=== PATIENT | female | born 1980 | race Caucasian/White ===

== ENCOUNTER 2018-09-09 10:54 | Emergency (ER) | payer BC ==
[2018-09-09 11:23] VITALS: PULSE 84; RESP 18; TEMP 98.2
[2018-09-09] MEDS ORDERED: SODIUM CHLORIDE 0.9% 1,000 ML IV STA (12:38)
[2018-09-09 12:43] LABS: Glucose,Whole Blood 90 mg/dL (75-99)
--- NOTE | 2018-09-09 13:00 | ED ---
Dizziness HPI - General Chief Complaint: Dizziness Stated Complaint: Dizzy/tingling/dry mouth Time Seen by Provider: 09/09/18 12:32 Source: patient Mode of arrival: wheelchair Limitations: no limitations - History of Present Illness Initial Comments: 38-year-old female patient presents to the emergency department today for evaluation of dizziness and near syncope. Patient states that she had dizziness starting this morning when she got to work. States that has persisted throughout the day and she is now having blurred vision. States that she has dizzy both at rest and with movement. States just prior to arrival she nearly passed out at work. Patient states that she has been having racing heart home morning as well. States it feels like is pounding out of her chest. States she is nauseated but has not vomited. She denies any chest pain, abdominal pain, fever, or chills. States that she does have a headache and does have history of migraines. States she is having some tingling and numbness to her hands and feet bilaterally. States that she is very thirsty and feels dry. Patient denies any recent rash, shortness breath, diarrhea, constipation, back pain, hematuria, dysuria, urinary urgency, urinary frequency , or any other complaints. - Related Data Home Medications Medication Instructions Recorded Confirmed Acetaminophen [Tylenol Extra 1,000 mg PO BID PRN 08/17/17 09/09/18 Strength] Ibuprofen [Motrin] 400 mg PO Q6HR PRN 08/17/17 09/09/18 diphenhydrAMINE [Benadryl] 50 mg PO HS 09/09/18 09/09/18 Previous Rx's Medication Instructions Recorded Meclizine HCl 25 mg PO BID #14 tablet 09/09/18 Allergies Allergy/AdvReac Type Severity Reaction Status Date / Time No Known Allergies Allergy Verified 09/09/18 12:43 Review of Systems ROS Statement: Those systems with pertinent positive or pertinent negative responses have been documented in the HPI. ROS Other: All systems not noted in ROS Statement are negative. Past Medical History Past Medical History: No Reported History History of Any Multi-Drug Resistant Organisms: None Reported Past Surgical History: Appendectomy, Back Surgery, Section, Cholecystectomy, Hysterectomy Additional Past Surgical History / Comment(s): LEFT FINGER SURGERY, CARPAL TUNNEL SEAN Past Psychological History: No Psychological Hx Reported Smoking Status: Former smoker Past Alcohol Use History: Occasional Past Drug Use History: None Reported General Exam Limitations: no limitations General appearance: alert, in no apparent distress, other (Physical well- developed, well-nourished adult female patient in no acute distress. Vital signs upon presentation are temperature 98.2F, pulse 84, respirations 18, blood pressure 124/71, pulse ox 100% on room air.) Eye exam: Present: normal appearance, PERRL, EOMI. Absent: scleral icterus, conjunctival injection, periorbital swelling ENT exam: Present: normal exam, normal oropharynx, mucous membranes moist Respiratory exam: Present: normal lung sounds bilaterally. Absent: respiratory distress, wheezes, rales, rhonchi, stridor Cardiovascular Exam: Present: regular rate, normal rhythm, normal heart sounds. Absent: systolic murmur, diastolic murmur, rubs, gallop, clicks GI/Abdominal exam: Present: soft, normal bowel sounds. Absent: distended, tenderness, guarding, rebound, rigid Neurological exam: Present: alert, oriented X3, CN II-XII intact, other ( Strength in all 4 extremities 5/5.) Psychiatric exam: Present: normal affect, normal mood Skin exam: Present: warm, dry, intact, normal color. Absent: rash Course Vital Signs 09/09/18 09/09/18 11:20 15:01 Temperature 98.2 F Pulse Rate 84 84 Respiratory 18 18 Rate Blood Pressure 124/71 110/62 O2 Sat by Pulse 100 100 Oximetry EKG Findings - EKG Comments: EKG Findings:: EKG obtained at 1252 shows normal sinus rhythm with a ventricular rate of 82, IN interval 150, QRS duration 86, QT 402, QTc 469. No evidence of ST elevation or depression. Medical Decision Making - Medical Decision Making 38-year-old female patient presents to the emergency department today for complaints of dizziness, dry mouth, tingling to hands and feet. Physical examination is unremarkable. Patient is neurologically intact with no focal deficits. Patient is able to ambulate without difficulty. Vital signs remained stable throughout visit. EKG shows normal sinus rhythm. Labs reviewed and are unremarkable. CT of the brain showed no acute intracranial abdomen mild 2. Did discuss findings and results with the patient. Did discuss that her dizziness could be related to migraine headache versus vertigo. She is instructed to take medications as directed and to follow-up with her primary care physician for recheck as soon as possible. She is also instructed to discuss possible referral to cardiology. Return parameters were discussed in detail. She verbalizes understanding and agrees with this plan. - Lab Data Result diagrams: 09/09/18 12:42 09/09/18 12:42 Lab Results 09/09/18 09/09/18 09/09/18 Range/Units 12:39 12:42 12:42 WBC 8.8 (3.8-10.6) k/uL RBC 4.70 (3.80-5.40) m/uL Hgb 14.2 (11.4-16.0) gm/dL Hct 39.9 (34.0-46.0) % MCV 84.8 (80.0-100.0) fL MCH 30.1 (25.0-35.0) pg MCHC 35.5 (31.0-37.0) g/dL RDW 13.1 (11.5-15.5) % Plt Count 206 (150-450) k/uL Neutrophils % 70 % Lymphocytes % 23 % Monocytes % 5 % Eosinophils % 1 % Basophils % 1 % Neutrophils # 6.1 (1.3-7.7) k/uL Lymphocytes # 2.0 (1.0-4.8) k/uL Monocytes # 0.4 (0-1.0) k/uL Eosinophils # 0.1 (0-0.7) k/uL Basophils # 0.1 (0-0.2) k/uL PT (9.0-12.0) sec INR (<1.2) APTT (22.0-30.0) sec Sodium 141 (137-145) mmol/L Potassium 4.0 (3.5-5.1) mmol/L Chloride 107 (98-107) mmol/L Carbon Dioxide 23 (22-30) mmol/L Anion Gap 11 mmol/L BUN 14 (7-17) mg/dL Creatinine 0.60 (0.52-1.04) mg/dL Est GFR (CKD-EPI)AfAm >90 (>60 ml/min/1.73 sqM) Est GFR (CKD-EPI)NonAf >90 (>60 ml/min/1.73 sqM) Glucose 94 (74-99) mg/dL POC Glucose (mg/dL) 90 (75-99) mg/dL POC Glu Corporate Director ID Erik Ramirez Calcium 9.5 (8.4-10.2) mg/dL Total Bilirubin 0.6 (0.2-1.3) mg/dL AST 20 (14-36) U/L ALT 32 (9-52) U/L Alkaline Phosphatase 55 (38-126) U/L Troponin I (0.000-0.034) ng/mL Total Protein 7.9 (6.3-8.2) g/dL Albumin 4.6 (3.5-5.0) g/dL Urine Color Urine Appearance (Clear) Urine pH (5.0-8.0) Ur Specific [place] (1.001-1.035) Urine Protein (Negative) Urine Glucose (UA) (Negative) Urine Ketones (Negative) Urine Blood (Negative) Urine Nitrite (Negative) Urine Bilirubin (Negative) Urine Urobilinogen (<2.0) mg/dL Ur Leukocyte Esterase (Negative) Urine WBC (0-5) /hpf Ur Squamous Epith Cells (0-4) /hpf Amorphous Sediment (None) /hpf Urine Bacteria (None) /hpf Hyaline Casts (0-2) /lpf Urine Mucus (None) /hpf Urine HCG, Qual (Not Detectd) 09/09/18 09/09/18 09/09/18 Range/Units 12:42 12:42 12:42 WBC (3.8-10.6) k/uL RBC (3.80-5.40) m/uL Hgb (11.4-16.0) gm/dL Hct (34.0-46.0) % MCV (80.0-100.0) fL MCH (25.0-35.0) pg MCHC (31.0-37.0) g/dL RDW (11.5-15.5) % Plt Count (150-450) k/uL Neutrophils % % Lymphocytes % % Monocytes % % Eosinophils % % Basophils % % Neutrophils # (1.3-7.7) k/uL Lymphocytes # (1.0-4.8) k/uL Monocytes # (0-1.0) k/uL Eosinophils # (0-0.7) k/uL Basophils # (0-0.2) k/uL PT 10.0 (9.0-12.0) sec INR 0.9 (<1.2) APTT 24.5 (22.0-30.0) sec Sodium (137-145) mmol/L Potassium (3.5-5.1) mmol/L Chloride (98-107) mmol/L Carbon Dioxide (22-30) mmol/L Anion Gap mmol/L BUN (7-17) mg/dL Creatinine (0.52-1.04) mg/dL Est GFR (CKD-EPI)AfAm (>60 ml/min/1.73 sqM) Est GFR (CKD-EPI)NonAf (>60 ml/min/1.73 sqM) Glucose (74-99) mg/dL POC Glucose (mg/dL) (75-99) mg/dL POC Glu Corporate Director ID Calcium (8.4-10.2) mg/dL Total Bilirubin (0.2-1.3) mg/dL AST (14-36) U/L ALT (9-52) U/L Alkaline Phosphatase (38-126) U/L Troponin I <0.012 (0.000-0.034) ng/mL Total Protein (6.3-8.2) g/dL Albumin (3.5-5.0) g/dL Urine Color Light Yellow Urine Appearance Cloudy H (Clear) Urine pH 6.0 (5.0-8.0) Ur Specific [place] 1.006 (1.001-1.035) Urine Protein Negative (Negative) Urine Glucose (UA) Negative (Negative) Urine Ketones Negative (Negative) Urine Blood Negative (Negative) Urine Nitrite Negative (Negative) Urine Bilirubin Negative (Negative) Urine Urobilinogen <2.0 (<2.0) mg/dL Ur Leukocyte Esterase Negative (Negative) Urine WBC 1 (0-5) /hpf Ur Squamous Epith Cells 30 H (0-4) /hpf Amorphous Sediment Occasional H (None) /hpf Urine Bacteria Rare H (None) /hpf Hyaline Casts 2 (0-2) /lpf Urine Mucus Rare H (None) /hpf Urine HCG, Qual (Not Detectd) 09/09/18 Range/Units 12:42 WBC (3.8-10.6) k/uL RBC (3.80-5.40) m/uL Hgb (11.4-16.0) gm/dL Hct (34.0-46.0) % MCV (80.0-100.0) fL MCH (25.0-35.0) pg MCHC (31.0-37.0) g/dL RDW (11.5-15.5) % Plt Count (150-450) k/uL Neutrophils % % Lymphocytes % % Monocytes % % Eosinophils % % Basophils % % Neutrophils # (1.3-7.7) k/uL Lymphocytes # (1.0-4.8) k/uL Monocytes # (0-1.0) k/uL Eosinophils # (0-0.7) k/uL Basophils # (0-0.2) k/uL PT (9.0-12.0) sec INR (<1.2) APTT (22.0-30.0) sec Sodium (137-145) mmol/L Potassium (3.5-5.1) mmol/L Chloride (98-107) mmol/L Carbon Dioxide (22-30) mmol/L Anion Gap mmol/L BUN (7-17) mg/dL Creatinine (0.52-1.04) mg/dL Est GFR (CKD-EPI)AfAm (>60 ml/min/1.73 sqM) Est GFR (CKD-EPI)NonAf (>60 ml/min/1.73 sqM) Glucose (74-99) mg/dL POC Glucose (mg/dL) (75-99) mg/dL POC Glu Corporate Director ID Calcium (8.4-10.2) mg/dL Total Bilirubin (0.2-1.3) mg/dL AST (14-36) U/L ALT (9-52) U/L Alkaline Phosphatase (38-126) U/L Troponin I (0.000-0.034) ng/mL Total Protein (6.3-8.2) g/dL Albumin (3.5-5.0) g/dL Urine Color Urine Appearance (Clear) Urine pH (5.0-8.0) Ur Specific [place] (1.001-1.035) Urine Protein (Negative) Urine Glucose (UA) (Negative) Urine Ketones (Negative) Urine Blood (Negative) Urine Nitrite (Negative) Urine Bilirubin (Negative) Urine Urobilinogen (<2.0) mg/dL Ur Leukocyte Esterase (Negative) Urine WBC (0-5) /hpf Ur Squamous Epith Cells (0-4) /hpf Amorphous Sediment (None) /hpf Urine Bacteria (None) /hpf Hyaline Casts (0-2) /lpf Urine Mucus (None) /hpf Urine HCG, Qual Not Detected (Not Detectd) - Radiology Data Radiology results: report reviewed, image reviewed CT brain without contrast was performed. Report is reviewed in its entirety. Impression by Dr. Hall shows no acute intracranial process is seen at this time. Disposition Clinical Impression: Dizziness, Migraine headache Disposition: HOME SELF-CARE Condition: Good Instructions: Migraine Headache (ED), Dizziness (ED) Additional Instructions: Take medication as directed. Follow up with your primary care physician for recheck as soon as possible. Discuss possible referral to cardiology. Return to the emergency department for any new, worsening, or concerning symptoms. Prescriptions: Meclizine HCl 25 mg PO BID #14 tablet Is patient prescribed a controlled substance at d/c from ED?: No Referrals: Mingo Allison DO [Primary Care Provider] - 1-2 days Time of Disposition: 14:14
[2018-09-09] MEDS ORDERED: ONDANSETRON 4 MG/2 ML VIAL IVP STA (13:06)
[2018-09-09 13:15] LABS: ALT 32 U/L (9-52); AST 20 U/L (14-36); Albumin 4.6 g/dL (3.5-5.0); Alkaline Phosphatase 55 U/L (38-126); Anion Gap 11 mmol/L; Blood Urea Nitrogen 14 mg/dL (7-17); Calcium 9.5 mg/dL (8.4-10.2); Carbon Dioxide 23 mmol/L (22-30); Chloride 107 mmol/L (98-107); Glucose 94 mg/dL (74-99); Sodium 141 mmol/L (137-145); Total Bilirubin 0.6 mg/dL (0.2-1.3); Total Protein 7.9 g/dL (6.3-8.2)
[2018-09-09 13:19] LABS: Amorphous Sediment,Urine Occasional /hpf; Appearance,Urine Cloudy (Clear); Bacteria,Urine Rare /hpf; Bilirubin,Urine Negative (Negative); Blood,Urine Negative (Negative); Color,Urine Light Yellow; Glucose,Urine (UA) Negative (Negative); Hyaline Casts,Urine 2 /lpf (0-2); Ketones,Urine Negative (Negative); Leukocyte Esterase,Urine Negative (Negative); Mucus,Urine Rare /hpf; Nitrite,Urine Negative (Negative); Protein,Urine Negative (Negative); Specific Gravity,Urine 1.006 (1.001-1.035); Squamous Epithelial Cell,Urine 30 /hpf (0-4); Urobilinogen,Urine <2.0 mg/dL (<2.0); WBC,Urine 1 /hpf (0-5)
[2018-09-09 13:21] LABS: INR 0.9 (<1.2); Partial Thromboplastin Time 24.5 sec (22.0-30.0)
[2018-09-09 13:33] LABS: Basophils # (A) 0.1 k/uL (0-0.2); Basophils % (A) 1 %; Eosinophils # (A) 0.1 k/uL (0-0.7); Eosinophils % (A) 1 %; HCT 39.9 % (34.0-46.0); HGB 14.2 gm/dL (11.4-16.0); Lymphocytes % (A) 23 %; MCH 30.1 pg (25.0-35.0); MCHC 35.5 g/dL (31.0-37.0); MCV 84.8 fL (80.0-100.0); Mean Platelet Volume 7.5; Monocytes # (A) 0.4 k/uL (0-1.0); Monocytes % (A) 5 %; Neutrophils # (A) 6.1 k/uL (1.3-7.7); Neutrophils % (A) 70 %; Platelet Count 206 k/uL (150-450); RDW 13.1 % (11.5-15.5); WBC 8.8 k/uL (3.8-10.6)
--- NOTE | 2018-09-09 13:55 | CT ---
EXAMINATION TYPE: CT brain wo con DATE OF EXAM: 09/09/2018 COMPARISON: 10/03/11 HISTORY: CAMPBELL, blurred vision, dizziness CT DLP: 1036.[address] of the brain was performed. The ventricles, basal cisterns and sulci overlying the cerebral convexities demonstrate a normal appe arance. There is no evidence for intracranial hemorrhage or sulcal effacement. No mass effects are seen. Osseous calvarium is intact. If symptoms persist consider MRI as clinically warranted. IMPRESSION: 1. No acute intracranial process is seen at this time.
[2018-09-09] MEDS ORDERED: KETOROLAC 30 MG/ML 1 ML VIAL IVP STA (14:12)
[2018-09-09] MEDS ORDERED: MORPHINE SULFATE 2 MG/ML SYRINGE IVP STA (14:12)
[2018-09-09] MEDS ORDERED: MECLIZINE 12.5 MG TAB PO STA (14:12)
[2018-09-09 15:02] VITALS: BP 110/62
== END 2018-09-09 14:50 | disposition home or self-care (01) ==
LOC: EC 10:54
DX: G43.909 Migraine, unspecified, not intractable, without status migrainosus (principal); R68.2 Dry mouth, unspecified; R20.2 Paresthesia of skin; R63.1 Polydipsia; Z87.891 Personal history of nicotine dependence; Z79.899 Other long term (current) drug therapy; Z98.890 Other specified postprocedural states
CPT/HCPCS: 36415; 93005; 80053; 84484; 85025; 85610; 85730; 81001; 81025; 70450; 99284; 96374; 96375 ×2; 96361; J2405; J1885; J2270

== ENCOUNTER → 2018-11-15 | Outpatient (CLI) | payer BC ==
[2018-11-15 08:40] LABS: HGB 13.8 gm/dL (11.4-16.0); MCH 27.8 pg (25.0-35.0); MCHC 32.1 g/dL (31.0-37.0); MCV 86.5 fL (80.0-100.0); Mean Platelet Volume 7.4; Platelet Count 221 k/uL (150-450); RBC 4.97 m/uL (3.80-5.40); WBC 6.9 k/uL (3.8-10.6)
--- NOTE | 2018-11-15 08:44 | XR ---
EXAMINATION TYPE: XR chest 2V DATE OF EXAM: 11/15/2018 COMPARISON: NONE TECHNIQUE: PA and lateral views submitted. HISTORY: Presurgical FINDINGS: The lungs are clear and there is no pneumothorax, pleural effusion, or focal pneumonia. Postsurgica l change overlying the cervical spine. Interstitium mildly coarsened. Surgical clips right abdomen. IMPRESSION: 1. Mildly coarsened interstitium could be related to poor inspiration. Correlate for bronchitis or pn eumonitis.
[2018-11-15 08:48] LABS: Partial Thromboplastin Time 24.7 sec (22.0-30.0); Prothrombin Time 10.3 sec (9.0-12.0)
[2018-11-15 08:50] LABS: Appearance,Urine Cloudy (Clear); Bacteria,Urine Few /hpf; Bilirubin,Urine Negative (Negative); Blood,Urine Negative (Negative); Color,Urine Yellow; Glucose,Urine (UA) Negative (Negative); Ketones,Urine Negative (Negative); Leukocyte Esterase,Urine Negative (Negative); Mucus,Urine Moderate /hpf; Nitrite,Urine Negative (Negative); PH, Urine 5.5 (5.0-8.0); Protein,Urine Trace (Negative); RBC,Urine 1 /hpf (0-5); Specific Gravity,Urine 1.019 (1.001-1.035); Squamous Epithelial Cell,Urine 19 /hpf (0-4); Urobilinogen,Urine <2.0 mg/dL (<2.0)
[2018-11-15 08:52] LABS: ALT 26 U/L (9-52); AST 16 U/L (14-36); Albumin 4.2 g/dL (3.5-5.0); Alkaline Phosphatase 56 U/L (38-126); Anion Gap 9 mmol/L; Blood Urea Nitrogen 16 mg/dL (7-17); Calcium 8.8 mg/dL (8.4-10.2); Carbon Dioxide 24 mmol/L (22-30); Chloride 107 mmol/L (98-107); Glucose 93 mg/dL (74-99); Potassium 4.3 mmol/L (3.5-5.1); Sodium 140 mmol/L (137-145); Total Bilirubin 0.5 mg/dL (0.2-1.3)
== END | disposition home or self-care (01) ==
LOC: LABPAT 07:39
PROVIDERS: ATTEND Neurological Surgery
DX: Z01.818 Encounter for other preprocedural examination (principal); M48.02 Spinal stenosis, cervical region
CPT/HCPCS: 36415; 71046; 80053; 81001; 85027; 85610; 85730; 87070

== ENCOUNTER → 2018-12-26 | Outpatient (CLI) | payer BC ==
--- NOTE | 2018-12-27 11:17 | XR ---
EXAMINATION TYPE: XR cervical spine limited DATE OF EXAM: 12/26/2018 COMPARISON: 03/11/2010 HISTORY: Postop TECHNIQUE: Four views are submitted. FINDINGS: There is a kyphosis of the cervical spine with extensive postsurgical changes. Surgical clips are see n anteriorly within the prevertebral soft tissue structures. Fixation plate is slightly displaced rel ative the anterior margin the vertebral column should be correlated clinically. Odontoid view is limited but grossly appears intact on the lateral view. Lung apices clear. Appears t o be a curvature of the visualized thoracic spine suggestive of scoliosis. IMPRESSION: 1. Postsurgical changes with a residual kyphosis centered at the approximate level of C5.
== END | disposition home or self-care (01) ==
LOC: RADXRMAIN 10:09
PROVIDERS: ATTEND Neurological Surgery
DX: M40.292 Other kyphosis, cervical region (principal); Z98.1 Arthrodesis status; Z98.890 Other specified postprocedural states
CPT/HCPCS: 72040

== ENCOUNTER → 2020-09-25 | Outpatient (CLI) | payer BC ==
--- NOTE | 2020-09-25 13:07 | US ---
EXAMINATION TYPE: US pelvis complete transvag DATE OF EXAM: 09/25/2020 COMPARISON: NONE CLINICAL HISTORY: 40-year-old female R10.32 left lower quadrant pain. Pelvic pain, partial hysterecto my 13 years ago TECHNIQUE: Transabdominal sonographic images of the pelvis were acquired. Transvaginal sonographic i mages were medically necessary to better assess the following anatomy: left ovary Date of LMP: unknown FINDINGS: EXAM MEASUREMENTS: Uterus: Surgically absent Right Ovary: 3.4 x 1.5 x 2.2 cm Left Ovary: unable to visualize 1. Uterus: Surgically absent, vaginal cuff measures 1.2 cm; no abnormal thickening seen. 2. Right Ovary: appears wnl 3. Left Ovary: Obscured by overlying bowel gas 4. Bilateral Adnexa: appears wnl IMPRESSION: 1. Status post hysterectomy. 2. Left ovary cannot be visualized due to bowel gas. 3. No evident adnexal abnormality or cul-de-sac free fluid.
== END | disposition home or self-care (01) ==
LOC: RADUSWWP 12:28
PROVIDERS: ATTEND Family Medicine
DX: Z90.710 Acquired absence of both cervix and uterus (principal)
CPT/HCPCS: 76830; 76856

== ENCOUNTER → 2020-10-13 | Outpatient (CLI) | payer BC ==
--- NOTE | 2020-10-13 15:41 | CT ---
EXAMINATION TYPE: CT abdomen pelvis w con DATE OF EXAM: 10/13/2020 COMPARISON: None INDICATION: Pelvic pain and bleeding DLP: 1006.1 mGycm, Automated exposure control for dose reduction was used. CONTRAST: 100 mL of Isovue 300. Study performed with Oral Contrast TECHNIQUE: Axial images were obtained from above the diaphragm to the pubic rami in the axial plane a t 5 mm thick sections. Reconstructed images are reviewed on the computer in the coronal plane. FINDINGS: Limited CT sections are obtained the lung bases. The lung bases are clear. CT ABDOMEN: Liver: Normal Spleen: Normal Pancreas: Normal Adrenal glands: The adrenal glands are normal. Gallbladder: Normal Kidneys: No masses are evident. No hydronephrosis is present. No cysts are present. Delayed images were obtained through the kidneys, which remain unremarkable. Aorta: Normal Inferior vena cava: Normal. CT PELVIS: Loops of bowel within the abdomen and pelvis are normal. Fecal debris is within the colon. There a re loops of bowel which are incompletely distended or lack oral contrast limiting their evaluation. Appendix: Not identified Urinary bladder: Normal. Genitourinary structures: Uterus and ovaries are not identified. Osseous structures: No suspicious lytic or sclerotic lesions. Sacroiliac joint degenerative changes p resent. IMPRESSIONS: 1. No suspicious changes to account for patient's symptoms.
== END | disposition home or self-care (01) ==
LOC: RADCTMAIN 12:44
PROVIDERS: ATTEND Family Medicine
DX: R10.32 Left lower quadrant pain (principal); R10.31 Right lower quadrant pain
CPT/HCPCS: 74177; Q9967

== ENCOUNTER → 2020-11-06 | Outpatient (CLI) | payer BC ==
--- NOTE | 2020-11-06 13:55 | MM ---
Reason for exam: screening (asymptomatic). Baseline mammogram. History: Took hormonal contraceptives for 10 years beginning at age 15. Physical Findings: Nurse did not find any significant physical abnormalities on exam. MG Screening Mammo w CAD Bilateral CC and MLO view(s) were taken. The breast tissue is heterogeneously dense. This may lower the sensitivity of mammography. There is no discrete abnormality. These results were verbally communicated with the patient and result sheet given to the patient on 11/06/20. ASSESSMENT: Benign, BI-RAD 2 RECOMMENDATION: Routine screening mammogram of both breasts in 1 year.
== END | disposition home or self-care (01) ==
LOC: RADMAMWWP 12:33
PROVIDERS: ATTEND Family Medicine
DX: Z12.31 Encounter for screening mammogram for malignant neoplasm of breast (principal)
CPT/HCPCS: 77067

== ENCOUNTER 2020-12-21 13:41 | Emergency (ER) | payer BC ==
--- NOTE | 2020-12-21 14:21 | XR ---
EXAMINATION TYPE: XR chest 2V DATE OF EXAM: 12/21/2020 COMPARISON: 11/15/2018 TECHNIQUE: PA and lateral views submitted. HISTORY: Shortness of breath FINDINGS: The lungs are clear and there is no pneumothorax, pleural effusion, or focal pneumonia. Diffuse inte rstitial pattern. Postsurgical change involving the cervical spine and upper quadrant of the abdomen. IMPRESSION: 1. Correlate for bronchitis or mild central interstitial pneumonitis.
[2020-12-21] MEDS ORDERED: DEXAMETHASONE SOD PHOSPHATE 10 MG/ML 1 ML VIAL IV STA (15:16)
[2020-12-21] MEDS ORDERED: KETOROLAC 15 MG/ML 1 ML VIAL IVP STA (15:17)
--- NOTE | 2020-12-21 16:17 | ED ---
SOB HPI - General Chief Complaint: Shortness of Breath Stated Complaint: COVID+,SOB Time Seen by Provider: 12/21/20 15:07 Source: patient Mode of arrival: ambulatory Limitations: no limitations - History of Present Illness Initial Comments: Is 40-year-old female presents with a complaint of some shortness breath and cough. She also has a midsternal chest pain which is described as a sharp pain that is nonradiating. She was diagnosed with COVID approximately 5 days ago and has had symptoms for approximately 6 days. She denies any loss of taste or loss of smell. She denies any nausea vomiting or constipation but has had mild diarrhea. She complains of significant fatigue. She relates that multiple family members have similar. She denies any leg pain or swelling. There is no history of DVT or PE but a family history of pulmonary embolism by mother. Her primary care as prescribed her albuterol and she takes 2 puffs every 4-6 hours without any significant relief. No other complaints or modifying factors. She denies any possibility of . - Related Data Home Medications Medication Instructions Recorded Confirmed Acetaminophen [Tylenol Extra 1,000 mg PO BID PRN 08/17/17 09/09/18 Strength] Ibuprofen [Motrin] 400 mg PO Q6HR PRN 08/17/17 09/09/18 diphenhydrAMINE [Benadryl] 50 mg PO HS 09/09/18 09/09/18 Previous Rx's Medication Instructions Recorded Meclizine HCl 25 mg PO BID #14 tablet 09/09/18 Albuterol Inhaler [Ventolin Hfa 4 puff INHALATION Q4H PRN #1 puff 12/21/20 Inhaler] Dexamethasone [Decadron] 6 mg PO DAILY #7 tablet 12/21/20 Allergies Allergy/AdvReac Type Severity Reaction Status Date / Time No Known Allergies Allergy Verified 12/21/20 14:02 Review of Systems ROS Statement: Those systems with pertinent positive or pertinent negative responses have been documented in the HPI. ROS Other: All systems not noted in ROS Statement are negative. Past Medical History Past Medical History: No Reported History History of Any Multi-Drug Resistant Organisms: None Reported Past Surgical History: Appendectomy, Back Surgery, Section, Cholecystectomy, Hysterectomy Additional Past Surgical History / Comment(s): LEFT FINGER SURGERY, CARPAL TUNNEL SEAN Past Psychological History: Anxiety, Bipolar, Depression Smoking Status: Former smoker Past Alcohol Use History: Occasional Past Drug Use History: None Reported General Exam - General Exam Comments Initial Comments: GENERAL: The patient is well nourished and well hydrated. VITAL SIGNS: Heart rate, blood pressure, respiratory rate reviewed as recorded in nurse's notes. EYES: Pupils are round and reactive. Extraocular movements are intact. No conjunctival / lid redness or swelling. ENT: No external evidence of injury, swelling, or ecchymosis. Airway is patent. Throat is clear. NECK: Nontender. No swelling or evidence of injury. No subcutaneous emphysema. Trachea is midline. No thyroid mass. HEART: Regular rate and rhythm. Good peripheral pulses. LUNGS/CHEST: Breath sounds clear and equal bilaterally. No rales, rhonchi, or wheezes. No ecchymosis, subcutaneous emphysema, or tenderness. ABDOMEN: Abdomen soft without tenderness. No palpable masses or organomegaly. No peritoneal signs. No abdominal wall swelling or ecchymosis. EXTREMITIES: No extremity tenderness. Normal muscle tone and function. No thoracolumbar tenderness. NEUROLOGIC: Sensation is grossly intact. Cranial nerve exam reveals face is symmetrical, tongue is midline, speech is clear. SKIN: No abrasions or ecchymosis is noted. No induration or masses noted. PSYCHIATRIC: Alert and oriented. Appropriate behavior and judgment. Limitations: no limitations Course Vital Signs 12/21/20 12/21/20 12/21/20 13:58 15:15 18:00 Temperature 98.0 F 97.8 F Pulse Rate 77 84 Respiratory 17 18 16 Rate Blood Pressure 105/71 102/66 O2 Sat by Pulse 97 96 Oximetry Medical Decision Making - Medical Decision Making The patient was seen and examined. All diagnostics are reviewed. The EKG shows a normal sinus rhythm at a rate of 74. There is no acute ST-T wave changes identified. The MS intervals 156, QRS duration is 88, and the QTC intervals 450. She does receive Decadron 6 mg intravenously as well as 15 mg of Toradol intravenously. The chest x-ray was done and does show infiltrates consistent with viral pneumonia. The laboratory was essentially within normal limits except for a slight elevation of the d-dimer. Therefore, a CT angiogram of the chest was completed and this does not show any evidence of pulmonary embolism but does show evidence of bilateral covert pneumonia, mild. It is felt as though the patient is stable for discharge. Her oxygenation status is been stable. Close follow-up recommended. Return parameters are discussed in detail. She will be prescribed steroids and a refill of her inhaler. - Lab Data Result diagrams: 12/21/20 15:36 12/21/20 15:36 Lab Results 12/21/20 12/21/20 12/21/20 Range/Units 14:07 15:36 15:36 WBC 9.8 (3.8-10.6) k/uL RBC 4.89 (3.80-5.40) m/uL Hgb 14.5 (11.4-16.0) gm/dL Hct 39.7 (34.0-46.0) % MCV 81.2 (80.0-100.0) fL MCH 29.6 (25.0-35.0) pg MCHC 36.5 (31.0-37.0) g/dL RDW 13.4 (11.5-15.5) % Plt Count 263 (150-450) k/uL MPV 8.3 Neutrophils % 63 % Lymphocytes % 25 % Monocytes % 7 % Eosinophils % 2 % Basophils % 1 % Neutrophils # 6.2 (1.3-7.7) k/uL Lymphocytes # 2.5 (1.0-4.8) k/uL Monocytes # 0.7 (0-1.0) k/uL Eosinophils # 0.2 (0-0.7) k/uL Basophils # 0.1 (0-0.2) k/uL PT 10.3 (9.0-12.0) sec INR 1.0 (<1.2) APTT 24.7 (22.0-30.0) sec D-Dimer 0.67 H (<0.60) mg/L FEU Sodium (137-145) mmol/L Potassium (3.5-5.1) mmol/L Chloride (98-107) mmol/L Carbon Dioxide (22-30) mmol/L Anion Gap mmol/L BUN (7-17) mg/dL Creatinine (0.52-1.04) mg/dL Est GFR (CKD-EPI)AfAm (>60 ml/min/1.73 sqM) Est GFR (CKD-EPI)NonAf (>60 ml/min/1.73 sqM) Glucose (74-99) mg/dL Calcium (8.4-10.2) mg/dL Total Bilirubin (0.2-1.3) mg/dL AST (14-36) U/L ALT (4-34) U/L Alkaline Phosphatase (38-126) U/L Troponin I (0.000-0.034) ng/mL Total Protein (6.3-8.2) g/dL Albumin (3.5-5.0) g/dL Coronavirus (PCR) Detected A (Not Detectd) 12/21/20 12/21/20 Range/Units 15:36 15:36 WBC (3.8-10.6) k/uL RBC (3.80-5.40) m/uL Hgb (11.4-16.0) gm/dL Hct (34.0-46.0) % MCV (80.0-100.0) fL MCH (25.0-35.0) pg MCHC (31.0-37.0) g/dL RDW (11.5-15.5) % Plt Count (150-450) k/uL MPV Neutrophils % % Lymphocytes % % Monocytes % % Eosinophils % % Basophils % % Neutrophils # (1.3-7.7) k/uL Lymphocytes # (1.0-4.8) k/uL Monocytes # (0-1.0) k/uL Eosinophils # (0-0.7) k/uL Basophils # (0-0.2) k/uL PT (9.0-12.0) sec INR (<1.2) APTT (22.0-30.0) sec D-Dimer (<0.60) mg/L FEU Sodium 138 (137-145) mmol/L Potassium 4.2 (3.5-5.1) mmol/L Chloride 105 (98-107) mmol/L Carbon Dioxide 22 (22-30) mmol/L Anion Gap 11 mmol/L BUN 12 (7-17) mg/dL Creatinine 0.66 (0.52-1.04) mg/dL Est GFR (CKD-EPI)AfAm >90 (>60 ml/min/1.73 sqM) Est GFR (CKD-EPI)NonAf >90 (>60 ml/min/1.73 sqM) Glucose 74 (74-99) mg/dL Calcium 9.3 (8.4-10.2) mg/dL Total Bilirubin 0.5 (0.2-1.3) mg/dL AST 20 (14-36) U/L ALT 15 (4-34) U/L Alkaline Phosphatase 69 (38-126) U/L Troponin I <0.012 (0.000-0.034) ng/mL Total Protein 7.3 (6.3-8.2) g/dL Albumin 4.4 (3.5-5.0) g/dL Coronavirus (PCR) (Not Detectd) Disposition Clinical Impression: COVID-19, Pneumonia due to COVID-19 virus, Chest pain Disposition: HOME SELF-CARE Condition: Good Instructions (If sedation given, give patient instructions): Coronavirus Disease 2019 (COVID-19), Viral Pneumonia (ED), Chest Pain (ED) Prescriptions: Dexamethasone [Decadron] 6 mg PO DAILY #7 tablet Albuterol Inhaler [Ventolin Hfa Inhaler] 4 puff INHALATION Q4H PRN #1 puff PRN Reason: Shortness Of Breath Is patient prescribed a controlled substance at d/c from ED?: No Referrals: Mingo Allison DO [Primary Care Provider] - 1-2 days Time of Disposition: 19:01
[2020-12-21 16:31] LABS: Basophils # (A) 0.1 k/uL (0-0.2); Basophils % (A) 1 %; Eosinophils # (A) 0.2 k/uL (0-0.7); Eosinophils % (A) 2 %; HCT 39.7 % (34.0-46.0); HGB 14.5 gm/dL (11.4-16.0); Lymphocytes # (A) 2.5 k/uL (1.0-4.8); Lymphocytes % (A) 25 %; MCH 29.6 pg (25.0-35.0); MCHC 36.5 g/dL (31.0-37.0); MCV 81.2 fL (80.0-100.0); Mean Platelet Volume 8.3; Monocytes # (A) 0.7 k/uL (0-1.0); Monocytes % (A) 7 %; Neutrophils # (A) 6.2 k/uL (1.3-7.7); Neutrophils % (A) 63 %; Platelet Count 263 k/uL (150-450); RBC 4.89 m/uL (3.80-5.40); RDW 13.4 % (11.5-15.5); WBC 9.8 k/uL (3.8-10.6)
[2020-12-21 16:54] LABS: ALT 15 U/L (4-34); AST 20 U/L (14-36); African American GFR (CKD) >90 (>60 ml/min/1.73 sqM); Albumin 4.4 g/dL (3.5-5.0); Alkaline Phosphatase 69 U/L (38-126); Anion Gap 11 mmol/L; Blood Urea Nitrogen 12 mg/dL (7-17); Calcium 9.3 mg/dL (8.4-10.2); Carbon Dioxide 22 mmol/L (22-30); Chloride 105 mmol/L (98-107); Glucose 74 mg/dL (74-99); Non-African American GFR(CKD) >90 (>60 ml/min/1.73 sqM); Potassium 4.2 mmol/L (3.5-5.1); Sodium 138 mmol/L (137-145); Total Bilirubin 0.5 mg/dL (0.2-1.3); Total Protein 7.3 g/dL (6.3-8.2)
[2020-12-21 16:57] LABS: Partial Thromboplastin Time 24.7 sec (22.0-30.0); Prothrombin Time 10.3 sec (9.0-12.0)
[2020-12-21 17:14] LABS: D-Dimer 0.67 mg/L FEU (<0.60)
[2020-12-21 18:24] VITALS: BP 102/66; PULSE 84; RESP 16; TEMP 97.8
--- NOTE | 2020-12-21 18:42 | CT ---
EXAMINATION TYPE: CT angio chest DATE OF EXAM: 12/21/2020 COMPARISON: None HISTORY: Elevated d-dimer. +covid. CT DLP: 291.2 mGycm Automated exposure control for dose reduction was used. CONTRAST: Performed with IV Contrast, patient injected with 100 mL of Isovue 300. There are 3-D post processed images. There is some minimal reticular interstitial infiltrate in the lateral and posterior lung green. The re is no pulmonary mass. There is no pleural effusion. Heart size is normal. There is no pericardial effusion. There are no hilar masses. There is no mediastinal adenopathy. There is some spurring in the thoracic spine. There is no compression fracture. Sternum is intact. I see no evidence of filling defect in the pulmonary arteries. Thoracic aorta appears normal. There i s no aneurysm or dissection. IMPRESSION: No evidence of pulmonary embolism. Minimal peripheral posterior and lateral interstitial infiltrates.
== END 2020-12-21 19:15 | disposition home or self-care (01) ==
LOC: EC 13:41
DX: U07.1 COVID-19 (principal); J12.82 Pneumonia due to coronavirus disease 2019; Z87.891 Personal history of nicotine dependence
CPT/HCPCS: 36415; 93005; 85379; 80053; 84484; 85025; 85610; 85730; 87635; 71046; 71275; 99285; 96374; 96375; J1100; J1885; Q9967

== ENCOUNTER → 2021-11-19 | Outpatient (CLI) | payer BC ==
--- NOTE | 2021-11-22 11:04 | MM ---
Reason for exam: screening (asymptomatic). Last mammogram was performed 1 year ago. History: Took hormonal contraceptives for 10 years beginning at age 15. Physical Findings: A clinical breast exam by your physician is recommended on an annual basis and results should be correlated with mammographic findings. MG 3D Screening Mammo W/Cad Bilateral CC and MLO view(s) were taken. Prior study comparison: November 06, 2020, bilateral MG screening mammo w CAD. The breast tissue is heterogeneously dense. This may lower the sensitivity of mammography. There is no discrete abnormality. No significant changes when compared with prior studies. ASSESSMENT: Negative, BI-RAD 1 RECOMMENDATION: Routine screening mammogram of both breasts in 1 year.
== END | disposition home or self-care (01) ==
LOC: RADMAMWWP 08:47
PROVIDERS: ATTEND Family Medicine
DX: Z12.31 Encounter for screening mammogram for malignant neoplasm of breast (principal)
CPT/HCPCS: 77063; 77067

== ENCOUNTER 2021-12-29 13:17 | Emergency (ER) | payer BC ==
[2021-12-29 13:31] VITALS: RESP 18; TEMP 97.7
--- NOTE | 2021-12-29 14:12 | ED ---
General Adult HPI - General Chief complaint: Upper Respiratory Infection Stated complaint: Cough, Fatigue Time Seen by Provider: 12/29/21 13:32 Source: patient Mode of arrival: ambulatory Limitations: no limitations - History of Present Illness Initial comments: This 41-year-old female presents emergency Department with cough x3 days. Patient states for the last 3 days she has had a cough and felt fatigued. Patient states she has had COVID-19 2 times in the last couple of years and states her symptoms are similar to this. Patient states she has been taking Motrin which has slightly helped her body aches. Patient states along with her cough she has gotten into "coughing jags" and vomited 3 times over the last 3 days. Patient states this morning when she got into a coughing jag she did cough up a little bit of blood that was mixed in with her sputum. Patient denies any clots or excessive bleeding. She states this has not happened since early this morning. Patient denies any fever, chest pain, shortness of breath, abdominal pain, nausea, change in bowel or bladder, change in appetite, lightheadedness, dizziness, headache, change in vision. Patient states she is vaccinated for COVID-19. - Related Data Home Medications Medication Instructions Recorded Confirmed ARIPiprazole [Abilify] 15 mg PO DAILY 12/29/21 12/29/21 Cyclobenzaprine [Flexeril] 10 - 20 mg PO HS 12/29/21 12/29/21 Phentermine HCl [Adipex-P] 37.5 mg PO DAILY 12/29/21 12/29/21 Pravastatin Sodium [Pravachol] 20 mg PO HS 12/29/21 12/29/21 Propranolol HCl 80 mg PO DAILY 12/29/21 12/29/21 Previous Rx's Medication Instructions Recorded Benzonatate [Tessalon Perles] 100 mg PO TID PRN #15 capsule 12/29/21 Allergies Allergy/AdvReac Type Severity Reaction Status Date / Time No Known Allergies Allergy Verified 12/29/21 14:23 Review of Systems ROS Statement: Those systems with pertinent positive or pertinent negative responses have been documented in the HPI. ROS Other: All systems not noted in ROS Statement are negative. Past Medical History Past Medical History: No Reported History History of Any Multi-Drug Resistant Organisms: None Reported Past Surgical History: Appendectomy, Back Surgery, Section, Cholecystectomy, Hysterectomy Additional Past Surgical History / Comment(s): LEFT FINGER SURGERY, CARPAL TUNNEL SEAN Past Psychological History: Anxiety, Bipolar, Depression Smoking Status: Former smoker Past Alcohol Use History: Occasional Past Drug Use History: None Reported General Exam Limitations: no limitations General appearance: alert, in no apparent distress Head exam: Present: atraumatic, normocephalic, normal inspection Eye exam: Present: normal appearance, PERRL, EOMI. Absent: scleral icterus, conjunctival injection, periorbital swelling Pupils: Present: normal accommodation ENT exam: Present: normal exam, normal oropharynx, mucous membranes moist Neck exam: Present: normal inspection, full ROM. Absent: tenderness, meningismus, lymphadenopathy Respiratory exam: Present: normal lung sounds bilaterally. Absent: respiratory distress, wheezes, rales, rhonchi, stridor, chest wall tenderness, decreased breath sounds, prolonged expiratory Cardiovascular Exam: Present: regular rate, normal rhythm, normal heart sounds. Absent: systolic murmur, diastolic murmur, rubs, gallop, clicks GI/Abdominal exam: Present: soft, normal bowel sounds. Absent: distended, tenderness, guarding, rebound, rigid Extremities exam: Present: normal inspection, full ROM, normal capillary refill. Absent: tenderness, pedal edema, joint swelling, calf tenderness Back exam: Present: full ROM. Absent: CVA tenderness (R), CVA tenderness (L), paraspinal tenderness, vertebral tenderness Neurological exam: Present: alert, oriented X3, CN II-XII intact, normal gait Psychiatric exam: Present: normal affect, normal mood Skin exam: Present: warm, dry, intact, normal color. Absent: rash Course Vital Signs 12/29/21 13:28 Temperature 97.7 F Pulse Rate 86 Respiratory 18 Rate Blood Pressure 110/70 O2 Sat by Pulse 98 Oximetry Medical Decision Making - Medical Decision Making This 41-year-old female presents emergency Department with cough and increased fatigue 3 days. COVID-19 and influenza A/B were negative. Chest x-ray impression of acute bronchitis. Tessalon Perles prescribed to patient. Patient instructed to follow up with her primary care provider next 1-2 days. Strict return precautions were discussed. Patient verbally agreed to plan. Patient sent home in stable condition. Case discussed in detail with my attending, . - Lab Data Lab Results 12/29/21 12/29/21 Range/Units 14:12 14:12 Coronavirus (PCR) Not Detected (Not Detectd) Influenza Type A RNA Not Detected (Not Detectd) Influenza Type B (PCR) Not Detected (Not Detectd) - Radiology Data Radiology results: image reviewed Disposition Clinical Impression: Bronchitis Disposition: HOME SELF-CARE Condition: Stable Instructions (If sedation given, give patient instructions): Upper Respiratory Infection (ED), Acute Bronchitis (ED) Additional Instructions: Please return to the emergency department with any new, worsening, or concerning symptoms. Take Tessalon Perles as directed. Follow-up with your primary care provider in next 1-2 days. Prescriptions: Benzonatate [Tessalon Perles] 100 mg PO TID PRN #15 capsule PRN Reason: Cough Is patient prescribed a controlled substance at d/c from ED?: No Referrals: Mingo Allison DO [Primary Care Provider] - 1-2 days Time of Disposition: 15:04
--- NOTE | 2021-12-29 14:15 | XR ---
EXAMINATION TYPE: XR chest 2V DATE OF EXAM: 12/29/2021 COMPARISON: Chest x-ray 12/21/2020 HISTORY: Cough TECHNIQUE: Frontal and lateral views of the chest are obtained. FINDINGS: There is no focal air space opacity, pleural effusion, or pneumothorax seen. The cardiac silhouette size is within normal limits. The osseous structures are intact, postop changes are agai n noted in the cervical spine, there is a spinal curvature as on prior. Surgical clips are present ri ght upper quadrant. There is bronchial wall thickening. IMPRESSION: Correlate for bronchitis, reactive airways disease, follow-up as indicated
[2021-12-29 15:15] VITALS: BP 128/84; PULSE 87
== END 2021-12-29 15:15 | disposition home or self-care (01) ==
LOC: EC 13:17
DX: J40 Bronchitis, not specified as acute or chronic (principal); Z87.891 Personal history of nicotine dependence; Z20.822 Contact with and (suspected) exposure to COVID-19
CPT/HCPCS: 71046; 87502; 87635; 99284

== ENCOUNTER 2022-11-19 07:34 | Emergency (ER) | payer BC ==
[2022-11-19 07:39] VITALS: PULSE 82; RESP 18; TEMP 98
--- NOTE | 2022-11-19 07:48 | ED ---
General Adult HPI - General Chief complaint: Extremity Injury, Lower Stated complaint: ankle injury Time Seen by Provider: 11/19/22 07:39 Source: patient, RN notes reviewed, old records reviewed Mode of arrival: ambulatory Limitations: no limitations - History of Present Illness Initial comments: This is a 42-year-old female who presents to the emergency department after having twisted her ankle from a fall 2 weeks ago. Patient states she had x-rays time and they were negative. Patient states the foot and ankle still hurts to the point where she is unable to ambulate so she wanted to come in and get reevaluated. Patient denies any upper leg pain. Patient denies any other problems. Patient states it hurts worse with walking. - Related Data Home Medications Medication Instructions Recorded Confirmed ARIPiprazole [Abilify] 15 mg PO DAILY 12/29/21 12/29/21 Cyclobenzaprine [Flexeril] 10 - 20 mg PO HS 12/29/21 12/29/21 Phentermine HCl [Adipex-P] 37.5 mg PO DAILY 12/29/21 12/29/21 Pravastatin Sodium [Pravachol] 20 mg PO HS 12/29/21 12/29/21 Propranolol HCl 80 mg PO DAILY 12/29/21 12/29/21 Previous Rx's Medication Instructions Recorded Benzonatate [Tessalon Perles] 100 mg PO TID PRN #15 capsule 12/29/21 Allergies Allergy/AdvReac Type Severity Reaction Status Date / Time No Known Allergies Allergy Verified 11/19/22 07:38 Review of Systems ROS Statement: Those systems with pertinent positive or pertinent negative responses have been documented in the HPI. ROS Other: All systems not noted in ROS Statement are negative. Past Medical History Past Medical History: No Reported History History of Any Multi-Drug Resistant Organisms: None Reported Past Surgical History: Appendectomy, Back Surgery, Section, Cholecystectomy, Hysterectomy Additional Past Surgical History / Comment(s): LEFT FINGER SURGERY, CARPAL TUNNEL SEAN Past Psychological History: Anxiety, Bipolar, Depression Smoking Status: Former smoker Past Alcohol Use History: Occasional Past Drug Use History: None Reported General Exam - General Exam Comments Initial Comments: GENERAL Patient is well-developed and well-nourished. Patient is in mild distress. EYES Patient's pupils are equal and round. Extraocular motion is intact SKIN Unremarkable NEURO The patient is alert and oriented 3 PYSCH Patient has normal interpersonal interactions. MUSCULOSKELETAL Ankle has some lateral malleolus tenderness as well as anterior midfoot tenderness no swelling or redness is noted Limitations: no limitations Course Vital Signs 11/19/22 07:35 Temperature 98 F Pulse Rate 82 Respiratory 18 Rate Blood Pressure 114/63 O2 Sat by Pulse 99 Oximetry Medical Decision Making - Medical Decision Making Was pt. sent in by a medical professional or institution (, [facility]ER[facility], MILK COLLECTOR, urgent care, hospital, or custodial...) When possible be specific @ -No Did you speak to anyone other than the patient for history (EMS, parent, family, police, friend...)? What history was obtained from this source @ -No Did you review nursing and triage notes (agree or disagree)? Why? @ -I reviewed and agree with nursing and triage notes Were old charts reviewed (outside hosp., previous admission, EMS record, old EKG, old radiological studies, urgent care reports/EKG's, custodial records)? Report findings @ -No old charts were reviewed Differential Diagnosis (chest pain, altered mental status, abdominal pain women, abdominal pain men, vaginal bleeding, weakness, fever, dyspnea, syncope, headache, dizziness, GI bleed, back pain, seizure, CVA, palpatations, mental health, musculoskeletal)? @ -Faroese musculoskeletal EKG interpreted by me (3pts min.). @ -As above X-rays interpreted by me (1pt min.). @ -X-ray of the ankle and foot were interpreted by myself and I saw no acute abnormality. CT interpreted by me (1pt min.). @ -None done U/S interpreted by me (1pt. min.). @ -None done What testing was considered but not performed or refused? (CT, X-rays, U/S, labs)? Why? @ -None What meds were considered but not given or refused? Why? @ -None Did you discuss the management of the patient with other professionals (professionals i.e. KERRI Bhatia, MILK COLLECTOR, lab, RT, psych nurse, 7th grade social studies teacher, turbine subassembler, teacher, youth officer, business case analyst)? Give summary @ -No Was smoking cessation discussed for >3mins.? @ -No Was critical care preformed (if so, how long)? @ -No Were there social determinants of health that impacted care today? How? (Homelessness, low income, unemployed, alcoholism, drug addiction, transportation, low edu. Level, literacy, decrease access to med. care, correction, rehab)? @ -No Was there de-escalation of care discussed even if they declined (Discuss DNR or withdrawal of care, Hospice)? DNR status @ -No What co-morbidities impacted this encounter? (DM, HTN, Smoking, COPD, CAD, Cancer, CVA, ARF, Chemo, Hep., AIDS, mental health diagnosis, sleep apnea, morbid obesity)? @ -None Was patient admitted / discharged? Hospital course, mention meds given and route, prescriptions, significant lab abnormalities, going to OR and other pertinent info. @ -Patient still was having some tenderness in the ankle and so patient was given an air splint for the ankle and told to follow-up with orthopedics. Undiagnosed new problem with uncertain prognosis? @ -No Drug Therapy requiring intensive monitoring for toxicity (Heparin, Nitro, Insulin, Cardizem)? @ -No Were any procedures done? @ -No Diagnosis/symptom? @ -Ankle sprain Acute, or Chronic, or Acute on Chronic? @ -Acute Uncomplicated (without systemic symptoms) or Complicated (systemic symptoms)? @ -Uncomplicated Side effects of treatment? @ -No Exacerbation, Progression, or Severe Exacerbation? @ -No Poses a threat to life or bodily function? How? (Chest pain, [place], [place], pneumonia, PE, COPD, DKA, ARF, appy, cholecystitis, CVA, Diverticulitis, Homicidal, Suicidal, threat to staff... and all critical care pts) @ -No Disposition Clinical Impression: Ankle sprain Disposition: HOME SELF-CARE Instructions (If sedation given, give patient instructions): Ankle Sprain (ED) Is patient prescribed a controlled substance at d/c from ED?: No Referrals: Ortiz Goncalves MD [Medical Doctor] - 1-2 days Time of Disposition: 08:55
--- NOTE | 2022-11-19 08:42 | XR ---
EXAMINATION TYPE: XR foot complete LT, XR ankle complete LT DATE OF EXAM: 11/19/2022 7:58 AM INDICATION: Patient age:Female; 42 years old; Reason for study: Trauma; COMPARISON: 08/17/2017 TECHNIQUE: The left foot and ankle was examined in the AP, oblique, and lateral projections. FINDINGS: No evidence of any acute osseous pathology. No evidence of soft tissue swelling. Joints are preserve d. Mild soft tissue swelling around the ankle. IMPRESSION: 1. No evidence of acute fracture. 2. Soft tissue swelling around the ankle correlate for underlying ligamentous injury. Consider MRI.
[2022-11-19 09:12] VITALS: BP 135/80
== END 2022-11-19 09:12 | disposition home or self-care (01) ==
LOC: EC 07:34
DX: S93.402A Sprain of unspecified ligament of left ankle, initial encounter (principal); F32.A Depression, unspecified; Z90.89 Acquired absence of other organs; Z90.49 Acquired absence of other specified parts of digestive tract; Z90.710 Acquired absence of both cervix and uterus; Z87.891 Personal history of nicotine dependence; W18.39XA Other fall on same level, initial encounter
CPT/HCPCS: 73610; 73630; 99283; 29515; L4350

== ENCOUNTER → 2023-05-23 | Outpatient (CLI) | payer BC ==
--- NOTE | 2023-05-23 10:25 | CT ---
EXAMINATION TYPE: CT chest w con DATE OF EXAM: 05/23/2023 COMPARISON: 12/21/2020 HISTORY: chronic cough CT DLP: 375.4 mGycm Automated exposure control for dose reduction was used. CONTRAST: CT scan of the chest is performed with IV Contrast, patient injected with 100 mL of Isovue 300. FINDINGS: LUNGS: Interstitial prominence and groundglass density at the lung bases could reflect acute inflamma tory process. Correlate clinically. There is no evidence for bronchiectasis. No volume loss is seen. No focal consolidation. Upper and midlung zones are well aerated. No nodule or mass is seen. MEDIASTINUM: There are no greater than 1 cm hilar or mediastinal lymph nodes. No pericardial effusi on is seen. Thoracic aorta is of normal caliber. The heart is not enlarged. UPPER ABDOMEN: No significant abnormality appreciated. OTHER: No additional significant abnormality is seen. IMPRESSION: Interstitial prominence and groundglass density at the lung bases could reflect acute inflammatory pr ocess. Correlate clinically.
== END | disposition home or self-care (01) ==
LOC: RADCTMAIN 09:46
PROVIDERS: ATTEND Internal Medicine
DX: J98.4 Other disorders of lung (principal); R05.3 Chronic cough
CPT/HCPCS: 71260; Q9967

== ENCOUNTER 2023-07-31 07:43 | Emergency (ER) | payer BC ==
--- NOTE | 2023-07-31 08:41 | XR ---
EXAMINATION TYPE: XR soft tissue neck DATE OF EXAM: 07/31/2023 8:25 AM CLINICAL INDICATION:Female, 43 years old with history of difficulty swallowing; COMPARISON: 12/26/2018. TECHNIQUE: The soft tissues of the neck were imaged in frontal and lateral views. FINDINGS: Extensive post surgical changes anterior posterior fusion throughout the cervical spine. Ov erall hardware appears intact. Surgical clips appear in the anterior neck. Multilevel degeneration re akhil with facet joint uncovertebral joint arthropathy. IMPRESSION: Post surgical changes without evidence for hardware failure. Findings are not significantly changed f rom prior.
[2023-07-31] MEDS ORDERED: DEXAMETHASONE SOD PHOSPHATE 4 MG/ML 1 ML VIAL PO ONE (09:20)
--- NOTE | 2023-07-31 09:29 | ED ---
ENT HPI - General Chief complaint: ENT Stated complaint: difficulty swallowing/throat pain Time Seen by Provider: 07/31/23 07:51 Source: patient, RN notes reviewed Mode of arrival: ambulatory Limitations: no limitations - History of Present Illness Initial comments: 43-year-old female presents emergency Department chief complaint sore throat, difficulty swallowing. Patient states this has been getting worse and last month. She is seen to ENT physicians for this and told that she may to have scope as he may be scar tissue from her prior cervical fusion. Patient states that she also has had a chronic cough and salt pulmonary and he thought this could be from reflux was started on Pepcid. She is able swallow liquids she states she has to eat small chunks of food. She has nothing currently stuck. Denies any difficulty breathing. No fevers. Patient does have mild congestion. - Related Data Home Medications Medication Instructions Recorded Confirmed ARIPiprazole [Abilify] 15 mg PO DAILY 12/29/21 12/29/21 Cyclobenzaprine [Flexeril] 10 - 20 mg PO HS 12/29/21 12/29/21 Phentermine HCl [Adipex-P] 37.5 mg PO DAILY 12/29/21 12/29/21 Pravastatin Sodium [Pravachol] 20 mg PO HS 12/29/21 12/29/21 Propranolol HCl 80 mg PO DAILY 12/29/21 12/29/21 Previous Rx's Medication Instructions Recorded Benzonatate [Tessalon Perles] 100 mg PO TID PRN #15 capsule 12/29/21 Sucralfate [Carafate] 1 gm PO BID #140 ml 07/31/23 Allergies Allergy/AdvReac Type Severity Reaction Status Date / Time No Known Allergies Allergy Verified 07/31/23 07:49 Review of Systems ROS Statement: Those systems with pertinent positive or pertinent negative responses have been documented in the HPI. ROS Other: All systems not noted in ROS Statement are negative. Past Medical History Past Medical History: No Reported History History of Any Multi-Drug Resistant Organisms: None Reported Past Surgical History: Appendectomy, Back Surgery, Section, Cholecystectomy, Hysterectomy Additional Past Surgical History / Comment(s): LEFT FINGER SURGERY, CARPAL TUNNEL SEAN Past Psychological History: Anxiety, Bipolar, Depression Smoking Status: Former smoker Past Alcohol Use History: Occasional Past Drug Use History: None Reported General Exam Limitations: no limitations General appearance: alert, in no apparent distress Head exam: Present: atraumatic, normocephalic, normal inspection Eye exam: Present: normal appearance, PERRL, EOMI. Absent: scleral icterus, conjunctival injection, periorbital swelling ENT exam: Present: normal exam, normal oropharynx, mucous membranes moist, TM's normal bilaterally Neck exam: Present: normal inspection, full ROM. Absent: tenderness, meningismus, lymphadenopathy Respiratory exam: Present: normal lung sounds bilaterally. Absent: respiratory distress, wheezes, rales, rhonchi, stridor Cardiovascular Exam: Present: regular rate, normal rhythm, normal heart sounds. Absent: systolic murmur, diastolic murmur, rubs, gallop, clicks GI/Abdominal exam: Present: soft, normal bowel sounds. Absent: distended, tenderness, guarding, rebound, rigid Course Vital Signs 07/31/23 07:47 Temperature 98.8 F Pulse Rate 76 Respiratory 20 Rate Blood Pressure 98/65 O2 Sat by Pulse 99 Oximetry Medical Decision Making - Medical Decision Making Was pt. sent in by a medical professional or institution (, PA, PULMONARY NURSE PRACTITIONER, urgent care, hospital, or assisted...) When possible be specific @ -No Did you speak to anyone other than the patient for history (EMS, parent, family, police, friend...)? What history was obtained from this source @ -No Did you review nursing and triage notes (agree or disagree)? Why? @ -I reviewed and agree with nursing and triage notes Were old charts reviewed (outside hosp., previous admission, EMS record, old EKG, old radiological studies, urgent care reports/EKG's, assisted records)? Report findings @ -No old charts were reviewed Differential Diagnosis (chest pain, altered mental status, abdominal pain women, abdominal pain men, vaginal bleeding, weakness, fever, dyspnea, syncope, headache, dizziness, GI bleed, back pain, seizure, CVA, palpatations, mental health, musculoskeletal)? @ -Strep, esophagitis, tonsillitis, esophageal food bolus, esophageal stenosis EKG interpreted by me (3pts min.). @ -None X-rays interpreted by me (1pt min.). @ -X-ray soft tissue neck shows stable cervical hardware, no significant narrowing CT interpreted by me (1pt min.). @ -None done U/S interpreted by me (1pt. min.). @ -None done What testing was considered but not performed or refused? (CT, X-rays, U/S, labs)? Why? @ -None What meds were considered but not given or refused? Why? @ -None Did you discuss the management of the patient with other professionals (professionals i.e. , PA, PULMONARY NURSE PRACTITIONER, lab, RT, psych nurse, psychologist social, christmas tree grower, teacher, intelligence officer, leather case finisher)? Give summary @ -No Was smoking cessation discussed for >3mins.? @ -No Was critical care preformed (if so, how long)? @ -No Were there social determinants of health that impacted care today? How? (Homelessness, low income, unemployed, alcoholism, drug addiction, transportation, low edu. Level, literacy, decrease access to med. care, detention, rehab)? @ -No Was there de-escalation of care discussed even if they declined (Discuss DNR or withdrawal of care, Hospice)? DNR status @ -No What co-morbidities impacted this encounter? (DM, HTN, Smoking, COPD, CAD, Cancer, CVA, ARF, Chemo, Hep., AIDS, mental health diagnosis, sleep apnea, morbid obesity)? @ -None Was patient admitted / discharged? Hospital course, mention meds given and route, prescriptions, significant lab abnormalities, going to OR and other pertinent info. @ -Discharge patient has negative oral swelling, soft tissue x-rays unremarkable patient able to swallow liquids. She is advised follow-up with surgery, GI for EGD. Patient was given Carafate as she's been treated for underlying reflux and may be causing symptoms. Undiagnosed new problem with uncertain prognosis? @ -No Drug Therapy requiring intensive monitoring for toxicity (Heparin, Nitro, Insulin, Cardizem)? @ -No Were any procedures done? @ -No Diagnosis/symptom? @ -dysphagia Acute, or Chronic, or Acute on Chronic? @ -[acute Uncomplicated (without systemic symptoms) or Complicated (systemic symptoms)? @ -uncomplicated Side effects of treatment? @ -No Exacerbation, Progression, or Severe Exacerbation? @ -No Poses a threat to life or bodily function? How? (Chest pain, [place], [place], pneumonia, PE, COPD, DKA, ARF, appy, cholecystitis, CVA, Diverticulitis, Homicidal, Suicidal, threat to staff... and all critical care pts) @ -No - Lab Data Lab Results 07/31/23 07/31/23 Range/Units 08:06 08:06 Influenza Type A (PCR) Not Detected (Not Detectd) Influenza Type B (PCR) Not Detected (Not Detectd) RSV (PCR) Not Detected (Not Detectd) SARS-CoV-2 (PCR) Not Detected (Not Detectd) Group A Strep (PCR) NOT DETECTED (Not Detectd) Disposition Clinical Impression: Dysphagia, GERD (gastroesophageal reflux disease) Disposition: HOME SELF-CARE Condition: Stable Additional Instructions: Please follow up with GI, surgery for EGD as directed.Please return to the Emergency Department if symptoms worsen or any other concerns. Prescriptions: Sucralfate [Carafate] 1 gm PO BID #140 ml Is patient prescribed a controlled substance at d/c from ED?: No Referrals: Mingo Allison DO [Primary Care Provider] - 1-2 days Nesha Mcwilliams MD [STAFF PHYSICIAN] - 1-2 days Jude Todd MD [STAFF PHYSICIAN] - 1-2 days Time of Disposition: 09:28
[2023-07-31 10:03] VITALS: BP 95/65; PULSE 80; RESP 16; TEMP 98.2
== END 2023-07-31 09:43 | disposition home or self-care (01) ==
LOC: EC 07:43
DX: R13.10 Dysphagia, unspecified (principal); K21.9 Gastro-esophageal reflux disease without esophagitis; F41.9 Anxiety disorder, unspecified; F31.9 Bipolar disorder, unspecified; Z87.891 Personal history of nicotine dependence; Z79.899 Other long term (current) drug therapy; Z20.822 Contact with and (suspected) exposure to COVID-19
CPT/HCPCS: 87651; 87636; 70360; 99283; J1100

== ENCOUNTER 2023-08-08 09:24 | Day surgery (SDC) | payer BC ==
[2023-08-02 14:44] VITALS: BMI 29.7
[~2023-08-08 09:24] MED LIST: LACTATED RINGERS 1,000 ML IV SCH
[2023-08-08 10:31] LABS: Glucose,Whole Blood 89 mg/dL (70-110)
[2023-08-08 10:32] VITALS: RESP 16; TEMP 97.9
[2023-08-08] MEDS ORDERED: PROPOFOL 10 MG/ML 20 ML VIAL IV ONE (10:48)
--- NOTE | 2023-08-08 10:56 | P.PCN ---
Date of Procedure: 08/08/23 Procedure(s) Performed: BRIEF HISTORY: Patient is a 43-year-old, pleasant, white female scheduled for an upper endoscopy as a part of evaluation of dysphagia for the last 1 month duration. Symptoms are progressively getting worse for the last 1 week duration and only able to swallow liquids.. PROCEDURE PERFORMED: Esophagogastroduodenoscopy with biopsy. PREOPERATIVE DIAGNOSIS: Dysphagia of 1 month duration. IV sedation per anesthesia. PROCEDURE: After informed consent was obtained, the patient was brought into the endoscopy unit. IV sedation was administered by Anesthesia under continuous monitoring. Initially the Olympus GIF-140 video endoscope was inserted into the mouth. Esophagus intubated without any difficulty. It was gradually advanced into the stomach and duodenum and carefully examined. The bulb and the second part of the duodenum appeared normal. The scope at this time was withdrawn to the stomach, adequately insufflated with air, and upon careful examination, mucosa of the antrum mild gastritis and biopsies were done from this area. Mucosa of the, body, cardia and the fundus appeared normal. The scope was then withdrawn into the esophagus. The GE junction was located at 39 cm from the incisors. The esophagus appeared normal. There were no erosions or ulcerations seen. No evidence of esophageal stricture. Multiple biopsies were done from the mid and distal esophagus to evaluate for years of age esophagitis and the patient tolerated the procedure well. IMPRESSION: 1. Normal-appearing esophagus with no evidence of esophagitis or esophageal stricture. 2. Mild antral gastritis. RECOMMENDATIONS: The findings of this examination were discussed with the patien t as well as a family. She was advised to follow with the biopsy results. She will be given a trial of Prilosec 20 mg daily and she'll be seen in office in 2- 3 weeks. If she continues to have persistent dysphagia well consider esophageal manometry to evaluate for esophageal dysmotility..
[2023-08-08 12:04] VITALS: BP 124/76; PULSE 88
== END 2023-08-08 11:52 | disposition home or self-care (01) ==
LOC: ORWHC2ENDO 09:24
PROVIDERS: ATTEND Internal Medicine Gastroenterology
DX: K29.50 Unspecified chronic gastritis without bleeding (principal); K21.00 Gastro-esophageal reflux disease with esophagitis, without bleeding; E78.5 Hyperlipidemia, unspecified; F41.9 Anxiety disorder, unspecified; F32.A Depression, unspecified; Z79.51 Long term (current) use of inhaled steroids; Z79.899 Other long term (current) drug therapy; Z90.710 Acquired absence of both cervix and uterus; Z98.890 Other specified postprocedural states
CPT/HCPCS: 88305; 43239; J2704

== ENCOUNTER → 2023-08-10 | Outpatient (CLI) | payer BC ==
--- NOTE | 2023-08-10 15:35 | MR ---
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 COMPARISON: 07/31/2023. TECHNIQUE: Multi planar, multi sequence imaging was performed utilizing: T1-weighted, T2-weighted, an d turbo inversion recovery imaging of the cervical spine. IV Contrast: cc (none if empty) FINDINGS: Alignment: The cervical vertebral bodies have preserved heights. Alignment is within normal limits gi christie patient positioning. Bones: Postsurgical changes to the spine which demonstrate susceptibility artifact. Multiple levels o f the cervical spine result in narrowing of the ventral subarachnoid space. No abnormal bony edema on inversion recovery sequences. Cord: The spinal cord is unremarkable with regards to their signal intensity and morphology. Discs: Surgically removed a separate multiple levels. Few scattered levels of disc visualized demons trate some disc desiccation. The upper cervical spine spinal cord is within normal limits. C2-C3: No significant disc pathology. The spinal canal is patent. No neural foraminal stenosis. C3-C4: No significant disc pathology. The spinal canal is patent. No neural foraminal stenosis. C4-C5: No significant disc pathology. The spinal canal is patent. No neural foraminal stenosis. C5-C6: No significant disc pathology. The spinal canal is patent. No neural foraminal stenosis. C6-C7: No significant disc pathology. The spinal canal is patent. Bilateral facet and uncovertebral joint arthropathy are present with mild bilateral neural foraminal stenosis. C7-T1: No significant disc pathology. The spinal canal is patent. Bilateral facet and uncovertebral joint arthropathy are present with moderate left and mild right bilateral neural foraminal stenosis. Other: None. IMPRESSION: 1. No evidence for disc herniation or significant spinal canal stenosis. 2. Postsurgical changes to the cervical spine there is no evidence for significant spinal canal steno sis however there is multiple osteophytes that near the ventral subarachnoid space. No neural foramin al stenosis is worse at C7-T1 on the left.
== END | disposition home or self-care (01) ==
LOC: RADMRIMAIN 08:04
PROVIDERS: ATTEND Family Medicine
DX: M50.10 Cervical disc disorder with radiculopathy, unspecified cervical region (principal); M25.78 Osteophyte, vertebrae
CPT/HCPCS: 72141

== ENCOUNTER → 2023-08-24 | Outpatient (CLI) | payer BC ==
--- NOTE | 2023-08-24 11:30 | FL ---
ESOPHOGRAM. HISTORY: Dysphagia Esophagram was performed per the air contrast technique. The patient swallowed barium and effervesce nt crystals without difficulty or delay. Extensive postsurgical change about the cervical spine with vertebral body stabilizer at C4. Pedicula r screws noted throughout. Anterior fixation plate which mildly effaces the posterior wall of the eso phagus. Esophageal peristalsis and motility appear to be within normal limits. There is no evidence for filling defect, mass or diverticulum. No hiatal hernia seen. Subsequently single contrast cervical esophagram was performed which fails demonstrate evidence for a spiration penetration or mass. IMPRESSION: Anterior fixation plate which mildly effaces the posterior wall of the esophagus. No evid ence for obstruction.
== END | disposition home or self-care (01) ==
LOC: RADUSWWP 10:41
PROVIDERS: ATTEND Otolaryngology
DX: R13.13 Dysphagia, pharyngeal phase (principal)
CPT/HCPCS: 74220

== ENCOUNTER → 2023-08-31 | Outpatient (CLI) | payer BC ==
--- NOTE | 2023-08-31 15:46 | CT ---
EXAMINATION TYPE: CT cervical spine wo con CT DLP: 507 mGycm, Automated exposure control for dose reduction was used. DATE OF EXAM: 08/31/2023 9:20 AM COMPARISON: 12/03/2010.. CLINICAL INDICATION:Female, 43 years old with history of spinal stenosis; hx of cervical sx. Recently had barium swallow, 08/24/[address] [facility] and she indicated one of the plates is causing issue with her tr achea. Pt is having difficulty swallowing and coughing TECHNIQUE: Axial CT images from the skull base to the inferior aspect of T2 we obtained without intra venous contrast. Coronal and sagittal reformatted images were also reviewed. Contrast used: mL of , (if blank None) Oral contrast used: (if blank None) FINDINGS: Fracture: None. Osseous structures: Postsurgical changes to the spine with fixation hardware at C3-C7 posteriorly. Delcid rdware is intact. There is laminectomy changes at this level. Surgically absent C4 vertebral body as provided by history with device in place which appears in appropriate position.. Fixation hardware at C5-C6 and C7 with at least the superior left lateral screw which demonstrates fracture series 7 imag e 45. The esophagus courses to the left lateral aspect of the anterior fixation hardware anteriorly a nd may be anterior to the fixation hardware in the superior aspect. Evaluation limited by streak jos fact. Vertebral alignment: Postsurgical alignment. Spinal canal/Neural Foramina: Streak artifact limits evaluation for neural foraminal stenosis. What i s visualized appears grossly patent. The spinal canal also appears patent within the limitations of e xam. Neck soft tissues: Prevertebral soft tissues are within normal limits. Other: The airway is patent. The lung apices are clear. IMPRESSION: Postsurgical changes spine with at least one fixation screw along the anterior 6 superior left latera l aspect of the fixation plate which appears fractured. The remainder of the hardware appears intact. Fixation plate in the superior aspect may be impressing upon the esophagus minimally when reviewing the 08/24/2023 barium swallow was evaluated.
== END | disposition home or self-care (01) ==
LOC: RADCTMAIN 08:28
PROVIDERS: ATTEND Neurological Surgery
DX: M48.02 Spinal stenosis, cervical region (principal); R13.10 Dysphagia, unspecified; Z98.890 Other specified postprocedural states
CPT/HCPCS: 72125

== ENCOUNTER 2023-10-13 10:14 | Emergency (ER) | payer BC ==
[2023-10-13 10:42] VITALS: TEMP 97.5
[2023-10-13] MEDS: SODIUM CHLORIDE 0.9% 1,000 ML IV STA ×2 (10:57→13:32)
--- NOTE | 2023-10-13 11:01 | ED ---
Chest Pain HPI - General Chief Complaint: Chest Pain Stated Complaint: Chest Pain Time Seen by Provider: 10/13/23 10:25 Source: patient, RN notes reviewed Mode of arrival: ambulatory Limitations: no limitations - History of Present Illness Initial Comments: This is a 43-year-old female who presents to the emergency department for chest pain. States that this started about 3 days ago. It is described as a centralized dull/aching sensation. Today she started to have numbness beginning in the left forearm and spreading distally. She has minor associated shortness of breath. Denies any radiation of pain into the back, neck, or jaw. Also denies any nausea/vomiting or abdominal pain. Denies any personal cardiac history, but states that her mother was diagnosed with coronary artery disease in her 30s, which is when she had her first heart attack. MD Complaint: chest pain Onset/Timin -: days(s) - Related Data Home Medications Medication Instructions Recorded Confirmed ARIPiprazole [Abilify] 15 mg PO DAILY 12/29/21 10/13/23 Cyclobenzaprine [Flexeril] 20 mg PO HS 12/29/21 10/13/23 Pravastatin Sodium [Pravachol] 20 mg PO HS 12/29/21 10/13/23 Benzonatate [Tessalon Perle] 200 mg PO BID 08/02/23 10/13/23 Montelukast [Singulair] 10 mg PO HS 08/02/23 10/13/23 Semaglutide [Wegovy] 2.4 mg SQ GAGE 08/02/23 10/13/23 traZODone HCL [Desyrel] 50 mg PO HS 08/02/23 10/13/23 Omeprazole 20 mg PO DAILY 10/13/23 10/13/23 Propranolol HCl [Propranolol HCl 120 mg PO DAILY 10/13/23 10/13/23 ER] Previous Rx's Medication Instructions Recorded Ibuprofen [Motrin] 800 mg PO Q8H PRN #30 tab 10/13/23 methocarbamoL [Robaxin-750] 1,500 mg PO TID PRN #30 tab 10/13/23 Allergies Allergy/AdvReac Type Severity Reaction Status Date / Time No Known Allergies Allergy Verified 10/13/23 16:39 Review of Systems ROS Statement: Those systems with pertinent positive or pertinent negative responses have been documented in the HPI. ROS Other: All systems not noted in ROS Statement are negative. Past Medical History Past Medical History: GERD/Reflux, Hyperlipidemia Additional Past Medical History / Comment(s): Migraines. History of Any Multi-Drug Resistant Organisms: None Reported Past Surgical History: Appendectomy, Back Surgery, Section, Cholecystectomy, Hysterectomy, Orthopedic Surgery Additional Past Surgical History / Comment(s): LEFT FINGER SURGERY, BILATERAL CARPAL TUNNEL, left ankle surgery. Past Anesthesia/Blood Transfusion Reactions: No Reported Reaction Past Psychological History: Anxiety, Bipolar, Depression Smoking Status: Former smoker Past Alcohol Use History: Occasional Past Drug Use History: None Reported - Past Family History Mother Family Medical History: Deep Vein Thrombosis (DVT) General Exam Limitations: no limitations General appearance: alert, in no apparent distress Head exam: Present: atraumatic, normocephalic, normal inspection Respiratory exam: Present: normal lung sounds bilaterally, chest wall tenderness (mild centralized). Absent: respiratory distress, wheezes, rales, rhonchi, stridor Cardiovascular Exam: Present: regular rate, normal rhythm, normal heart sounds. Absent: systolic murmur, diastolic murmur, rubs, gallop, clicks Neurological exam: Present: alert, oriented X3, CN II-XII intact Psychiatric exam: Present: normal affect, normal mood Skin exam: Present: warm, dry, intact, normal color. Absent: rash Course Vital Signs 10/13/23 10/13/23 10/13/23 10:19 10:39 12:20 Temperature 97.5 F L Pulse Rate 78 78 75 Respiratory 18 18 18 Rate Blood Pressure 109/66 98/64 97/61 O2 Sat by Pulse 100 96 97 Oximetry 10/13/23 10/13/23 13:31 14:45 Temperature Pulse Rate 80 76 Respiratory 18 18 Rate Blood Pressure 99/62 100/65 O2 Sat by Pulse 95 100 Oximetry Chest Pain MDM - MDM This is a 43-year-old female who presents to the emergency department for chest pain. Was pt. sent in by a medical professional or institution? @ -No Did you speak to anyone other than the patient for history? @ -No Did you review nursing and triage notes? @ -Yes, and I agree, it is accurate with regards to the patient's symptoms. Were old charts reviewed? @ -No Differential Diagnosis? @ -Differential Chest Pain: Stable Angina, Unstable Angina, STEMI, NSTEMI Aortic Dissection, Pneumothorax, Musculoskeletal, Esophageal Spasm GERD, Cholecystitis, Pancreatitis, Zoster, this is not meant to be an all-inclusive list. EKG interpreted by me (3pts min.)? @ -EKG interpreted by me demonstrating the following: Sinus rhythm. Ventricular rate 75 beats per minute, OR interval 160 ms, QRS duration 92 ms, QTC 416 ms. X-rays interpreted by me (1pt min.)? @ -Chest x-ray obtained, my interpretation identifies no localized consolidations or infiltrates. CT interpreted by me (1pt min.)? @ -CTA of the chest obtained. My interpretation identifies no evidence of a pulmonary embolus. U/S interpreted by me (1pt. min.)? @ -Not obtained What testing was considered but not performed? (CT, X-rays, U/S, labs)? Why? @ -None What meds were considered but not given? Why? @ -None Did you discuss the management of the patient with other professionals? @ -No Did you reconcile home meds? @ -No Was smoking cessation discussed for >3mins.? @ -No Was critical care preformed (if so, how long)? @ -No Were there social determinants of health that impacted care today? How? (Homelessness, low income, unemployed, alcoholism, drug addiction, transportation, low edu. Level, literacy, decrease access to med. care, longterm, rehab)? @ -No Was there de-escalation of care discussed even if they declined? (Discuss DNR or withdrawal of care, Hospice)? @ -No What co-morbidities impacted this encounter? (DM, HTN, Smoking, COPD, CAD, Cancer, CVA, Hep., AIDS, mental health diagnosis, sleep apnea, morbid obesity)? @ -GERD, HLD Was patient admitted / discharged? @ -Discharged. Lab work obtained and found to be unremarkable, with a negative troponin. Chest x-ray reveals no acute process. Heart score 1-2 based on description of symptoms and risk factors. Patient was given a dose of nitroglycerin with no relief in symptoms. She was then given Toradol and Norflex, again without substantial relief. She was then given a dose of morphine but continued to have pain. Given the persistent nature of her symptoms, we discussed a d-dimer for further evaluation of other possible causes. However, several nurses attempted to get blood from her and were unsuccessful. Discussed with the patient the option of proceeding with a CTA as opposed to waiting for a d-dimer due to the delay with the blood, and she requested to proceed. CTA of the chest obtained revealing no evidence of a pulmonary embolus or other acute process. Symptoms likely musculoskeletal in nature or related to a pleuritis given the negative workup and low heart score. Rx for Robaxin and Ibuprofen provided with dosing instructions reviewed. Patient discharged home in stable condition with instructions to follow up with her PCP for further evaluation. Undiagnosed new problem with uncertain prognosis? @ -None Drug Therapy requiring intensive monitoring for toxicity (Heparin, Nitro, Insulin, Cardizem)? @ -None Were any procedures done? @ -None Diagnosis/symptom? @ -Chest pain Acute, or Chronic, or Acute on Chronic? @ -Acute Uncomplicated (without systemic symptoms) or Complicated (systemic symptoms)? @ -Uncomplicated Side effects of treatment? @ -None Exacerbation, Progression, or Severe Exacerbation] @ -Not applicable Poses a threat to life or bodily function? @ -This will depend on the cause of her pain. Return precautions reviewed in depth, the patient is instructed to return to the emergency department with any new, worsening, or concerning symptoms. Patient verbalized understanding. This case was discussed in detail with the attending ED physician, Dr. Mendoza. Presentation, findings, and treatment plan discussed in detail as well. Disposition Clinical Impression: Chest pain Disposition: HOME SELF-CARE Instructions (If sedation given, give patient instructions): Chest Pain (ED), Costochondritis (ED), Noncardiac Chest Pain (ED) Additional Instructions: Return to the emergency department with any new, worsening, or concerning symptoms. Alternate with ibuprofen and Tylenol as needed for pain relief. You can take the Robaxin as 1-2 tablets up to 3-4 times daily. Be aware that this may make you drowsy. Follow up with your primary care provider in 1-2 days. Prescriptions: Ibuprofen [Motrin] 800 mg PO Q8H PRN #30 tab PRN Reason: Pain methocarbamoL [Robaxin-750] 1,500 mg PO TID PRN #30 tab PRN Reason: Pain Is patient prescribed a controlled substance at d/c from ED?: No Referrals: Mingo Allison DO [Primary Care Provider] - 1-2 days Time of Disposition: 19:20
--- NOTE | 2023-10-13 12:01 | XR ---
EXAMINATION TYPE: XR chest 2V DATE OF EXAM: 10/13/2023 11:56 AM CLINICAL INDICATION:Female, 43 years old with history of Chest Pain; COMPARISON: Chest radiographs from 12/29/2021. TECHNIQUE: XR chest 2V Frontal and lateral views of the chest. FINDINGS: Lungs/Pleura: There is no evidence of pleural effusion, focal consolidation, or pneumothorax. Pulmonary vascularity: Unremarkable. Heart/mediastinum: Cardiomediastinal silhouette is unremarkable. Musculoskeletal: No acute osseous pathology. There is fixation hardware in the lower cervical spine. Other findings: None IMPRESSION: No acute cardiopulmonary disease/process.
[2023-10-13] MEDS: NITROGLYCERIN SL TABS 0.4 MG TAB SUBLINGUAL STA (12:38)
[2023-10-13 12:44] LABS: INR 0.9 (<1.2); Partial Thromboplastin Time 23.3 sec (22.0-30.0); Prothrombin Time 10.3 sec (10.0-12.5)
[2023-10-13 12:56] LABS: Basophils # (A) 0.1 k/uL (0-0.2); Basophils % (A) 1 %; Eosinophils # (A) 0.3 k/uL (0-0.7); Eosinophils % (A) 3 %; HCT 39.4 % (34.0-46.0); HGB 13.9 gm/dL (11.4-16.0); Lymphocytes # (A) 2.4 k/uL (1.0-4.8); Lymphocytes % (A) 26 %; MCH 29.8 pg (25.0-35.0); MCHC 35.4 g/dL (31.0-37.0); MCV 84.1 fL (80.0-100.0); Monocytes # (A) 0.5 k/uL (0-1.0); Monocytes % (A) 6 %; Neutrophils % (A) 63 %; Platelet Count 250 k/uL (150-450); RBC 4.68 m/uL (3.80-5.40); RDW 13.5 % (11.5-15.5); WBC 9.4 k/uL (3.8-10.6)
[2023-10-13 13:10] LABS: ALT 21 U/L (4-34); AST 23 U/L (14-36); African American GFR (CKD) >90 (>60 ml/min/1.73 sqM); Albumin 4.3 g/dL (3.5-5.0); Alkaline Phosphatase 83 U/L (38-126); Anion Gap 7 mmol/L; Blood Urea Nitrogen 16 mg/dL (7-17); Calcium 9.3 mg/dL (8.4-10.2); Carbon Dioxide 26 mmol/L (22-30); Chloride 105 mmol/L (98-107); Glucose 90 mg/dL (74-99); Magnesium 2.1 mg/dL (1.6-2.3); Non-African American GFR(CKD) >90 (>60 ml/min/1.73 sqM); Potassium 4.8 mmol/L (3.5-5.1); Sodium 138 mmol/L (137-145); Total Bilirubin 0.4 mg/dL (0.2-1.3); Total Protein 7.1 g/dL (6.3-8.2)
[2023-10-13] MEDS: ORPHENADRINE 30 MG/ML 2 ML VIAL IVP STA (14:46)
[2023-10-13] MEDS: KETOROLAC 15 MG/ML 1 ML VIAL IVP STA (14:46)
[2023-10-13] MEDS: MORPHINE SULFATE 4 MG/ML SYRINGE IVP STA (15:56)
--- NOTE | 2023-10-13 19:03 | CT ---
EXAMINATION TYPE: CT chest angio for PE DATE OF EXAM: 10/13/2023 COMPARISON: None HISTORY: Chest pain, dyspnea CT DLP: 374.7 mGycm CONTRAST: CT chest with contrast and 3D reconstruction with MIP imaging is performed with IV Contrast, patient injected with 66ml mL of Isovue 370. Contrast-enhanced CT of the chest was performed through the course of the pulmonary arteries with dorie g and mediastinal window settings submitted. 3D reconstruction with MIP imaging was also performed. PULMONARY ARTERIES: The pulmonary arteries and their major tributaries are patent. I do not see navneet dence for sizable filling defect to suggest pulmonary embolic process. LUNGS: The lungs are clear and free of infiltrate. Linear basilar atelectasis seen. No pulmonary nodu le or mass is detected. No pleural effusion. MEDIASTINUM: Thoracic aorta is of normal caliber,however, evaluation is limited given timing of the contrast bolus. If there is concern for thoracic aortic pathology consider TAMIA. Correlate clinicall y . The heart is not enlarged. No evidence for mediastinal mass. No mediastinal lymph nodes greater than 1cm. HILAR STRUCTURES: No evidence for mass. No hilar lymph nodes greater than 1 cm. UPPER ABDOMEN: No significant abnormality is seen. IMPRESSION: 1. No evidence for Pulmonary embolism at this time.
[2023-10-13] MEDS: IBUPROFEN 600 MG STARTER PACK 4 TAB BTL PO STA (20:05)
[2023-10-13] MEDS: CYCLOBENZAPRINE 10MG STARTER 3 TAB BTL PO STA (20:05)
[2023-10-13] MEDS: ACET/COD 300 MG/30 MG STARTER PACK 6 TAB BTL PO STA (20:05)
[2023-10-13 20:28] VITALS: BP 122/73; PULSE 73; RESP 16
== END 2023-10-13 20:18 | disposition home or self-care (01) ==
LOC: EC 10:14
DX: R07.89 Other chest pain (principal); K21.9 Gastro-esophageal reflux disease without esophagitis; E78.5 Hyperlipidemia, unspecified; F41.9 Anxiety disorder, unspecified; F31.9 Bipolar disorder, unspecified; Z87.891 Personal history of nicotine dependence; Z79.899 Other long term (current) drug therapy
CPT/HCPCS: 36415; 93005; 80053; 83735; 84484; 85025; 85610; 85730; 71046; 71275; 99285; 96374; 96375 ×2; 96361; J2270; J2360; J1885; Q9967

== ENCOUNTER → 2024-02-07 | Outpatient (CLI) | payer BC ==
--- NOTE | 2024-02-07 23:51 | MM ---
Reason for Exam: Screening (asymptomatic). Last mammogram was performed 2 year(s) and 2 month(s) ago. Patient History: Menarche at age 11. First Full-Term at age 20. Hysterectomy at age 27. Hormonal Contraceptives for 10 years from age 15 until age 25. Risk Values: Ch[place] 5 year model risk: 0.7%. NCI Lifetime model risk: 8.7%. Prior Study Comparison: 11/06/2020 Bilateral Screening Mammogram, [facility]. 11/19/2021 Bilateral Screening Mammogram, [facility]. Tissue Density: The breasts are heterogeneously dense, which may obscure small masses. Findings: Analyzed By CAD. The pattern is symmetrical. There is a focal asymmetry which may be developing from the comparison studies. This is in the 3:00 middle position left breast was estimated to be 1.1 cm in diameter and the lateral oblique view located 7 cm in the nipple. This could be summation density. Additional workup is recommended. Right breast:No suspicious groups of microcalcifications, spiculated or lobular masses, architectural distortion or other secondary signs of malignancy are mammographically apparent. Overall Assessment: Incomplete: need additional imaging evaluation, BI-RAD 0 Management: Diagnostic Mammogram of the left breast. A negative mammogram report should not preclude additional follow up of suspicious palpable abnormalities. Patient should continue monthly self breast exam. A clinical breast exam by your physician is recommended on an annual basis and results should be correlated with mammographic findings. Note on Chula scores and lifetime risk: 1. A Chula score greater than 3% is considered moderate risk. If this is the case, consider specialist referral to assess eligibility for a risk reducing agent. 2. If overall lifetime risk for the development of breast cancer is 20% or higher, the patient may qualify for future screening with alternating mammogram and breast MRI. Electronically signed and approved by: Caleb Rice D.O. Radiologis
== END | disposition home or self-care (01) ==
LOC: RADMAMWWP 08:02
PROVIDERS: ATTEND Family Medicine
DX: Z12.31 Encounter for screening mammogram for malignant neoplasm of breast (principal)
CPT/HCPCS: 77063; 77067

== ENCOUNTER → 2024-02-09 | Outpatient (CLI) | payer BC ==
--- NOTE | 2024-02-09 09:33 | MM ---
Reason for Exam: Additional evaluation requested from abnormal screening. Last screening mammogram was performed less than 1 month ago. Patient History: Menarche at age 11. First Full-Term at age 20. Hysterectomy at age 27. Hormonal Contraceptives for 10 years from age 15 until age 25. Risk Values: [place] 5 year model risk: 0.7%. NCI Lifetime model risk: 8.7%. Prior Study Comparison: 11/06/2020 Bilateral Screening Mammogram, [facility]. 11/19/2021 Bilateral Screening Mammogram, [facility]. 02/07/2024 Bilateral MG 3D screening mammo w/cad, [facility]. Tissue Density: Left: The breasts are heterogeneously dense, which may obscure small masses. Findings: Analyzed By CAD. Pattern appears stable. Under compression no persistent suspicious focal asymmetry is evident. No suspicious groups of microcalcifications, spiculated or lobular masses, architectural distortion or other secondary signs of malignancy are mammographically apparent. Overall Assessment: Benign, BI-RAD 2 Management: Screening Mammogram of both breasts in 1 year. A negative mammogram report should not preclude additional follow up of suspicious palpable abnormalities. Patient should continue monthly self breast exam. A clinical breast exam by your physician is recommended on an annual basis and results should be correlated with mammographic findings. Note on Chula scores and lifetime risk: 1. A Chula score greater than 3% is considered moderate risk. If this is the case, consider specialist referral to assess eligibility for a risk reducing agent. 2. If overall lifetime risk for the development of breast cancer is 20% or higher, the patient may qualify for future screening with alternating mammogram and breast MRI. Electronically signed and approved by: Caleb Rice D.O. Radiologis
== END | disposition home or self-care (01) ==
LOC: RADMAMWWP 09:09
PROVIDERS: ATTEND Family Medicine
DX: R92.332 Mammographic heterogeneous density, left breast (principal)
CPT/HCPCS: 77061; 77065

== ENCOUNTER 2024-08-03 05:32 | Emergency (ER) | payer BC ==
[2024-08-03 05:40] VITALS: TEMP 97.7
--- NOTE | 2024-08-03 05:56 | ED ---
General Adult HPI - General Chief complaint: Upper Respiratory Infection Stated complaint: Cough Time Seen by Provider: 08/03/24 05:56 Source: patient Mode of arrival: ambulatory Limitations: no limitations - History of Present Illness Initial comments: Carmela is a 44-year-old female who presents the ER today for evaluation of persistent cough. Patient reports she usually gets a cough for about a month in the fall however she has had this cough going on 2 months and seems to be worsening. Patient reports she has a sore throat from coughing. Cough is minimally productive not associated with any chest pain palpitations or shortness of breath. Patient is a former smoker no history of asthma or reactive airway disease. - Related Data Home Medications Medication Instructions Recorded Confirmed ARIPiprazole [Abilify] 15 mg PO DAILY 12/29/21 10/13/23 Cyclobenzaprine [Flexeril] 20 mg PO HS 12/29/21 10/13/23 Pravastatin Sodium [Pravachol] 20 mg PO HS 12/29/21 10/13/23 Benzonatate [Tessalon Perle] 200 mg PO BID 08/02/23 10/13/23 Montelukast [Singulair] 10 mg PO HS 08/02/23 10/13/23 Semaglutide [Wegovy] 2.4 mg SQ GAGE 08/02/23 10/13/23 traZODone HCL [Desyrel] 50 mg PO HS 08/02/23 10/13/23 Omeprazole 20 mg PO DAILY 10/13/23 10/13/23 Propranolol HCl [Propranolol HCl 120 mg PO DAILY 10/13/23 10/13/23 ER] Previous Rx's Medication Instructions Recorded Ibuprofen [Motrin] 800 mg PO Q8H PRN #30 tab 10/13/23 methocarbamoL [Robaxin-750] 1,500 mg PO TID PRN #30 tab 10/13/23 predniSONE [Deltasone] 40 mg PO DAILY 5 Days #10 tab 08/03/24 Allergies Allergy/AdvReac Type Severity Reaction Status Date / Time No Known Allergies Allergy Verified 08/03/24 05:39 Review of Systems ROS Statement: Those systems with pertinent positive or pertinent negative responses have been documented in the HPI. ROS Other: All systems not noted in ROS Statement are negative. Past Medical History Past Medical History: GERD/Reflux, Hyperlipidemia Additional Past Medical History / Comment(s): Migraines. History of Any Multi-Drug Resistant Organisms: None Reported Past Surgical History: Appendectomy, Back Surgery, Section, Cholecystectomy, Hysterectomy, Orthopedic Surgery Additional Past Surgical History / Comment(s): LEFT FINGER SURGERY, BILATERAL CARPAL TUNNEL, left ankle surgery. Past Anesthesia/Blood Transfusion Reactions: No Reported Reaction Past Psychological History: Anxiety, Bipolar, Depression Smoking Status: Former smoker Past Alcohol Use History: Occasional Past Drug Use History: None Reported - Past Family History Mother Family Medical History: Deep Vein Thrombosis (DVT) General Exam - General Exam Comments Initial Comments: Physical Exam GENERAL: Patient is well-developed and well-nourished. Patient is nontoxic and well- hydrated and is in no distress. HENT: Normocephalic, Atraumatic. EYES: PERRL, EOMI PULMONARY: Unlabored respirations. No audible rales rhonchi or wheezing was noted. CARDIOVASCULAR: There is a regular rate and rhythm without any murmurs gallops or rubs. ABDOMEN: Soft and nontender with normal bowel sounds. SKIN: Skin is clear with no lesions or rashes and otherwise unremarkable. : Deferred NEUROLOGIC: Patient is alert and oriented x3. Moving all extremities spontaneously MUSCULOSKELETAL: Normal extremities with adequate strength and full range of motion. No lower extremity swelling or edema. No calf tenderness. PSYCHIATRIC: Normal psychiatric evaluation. Limitations: no limitations Course Vital Signs 08/03/24 05:37 Temperature 97.7 F Pulse Rate 73 Respiratory 16 Rate Blood Pressure 111/76 O2 Sat by Pulse 98 Oximetry Medical Decision Making - Medical Decision Making Was pt. sent in by a medical professional or institution (, PA, WEED COOKING OPERATOR, urgent care, hospital, or correction...) When possible be specific @ -No Did you speak to anyone other than the patient for history (EMS, parent, family, police, friend...)? What history was obtained from this source @ -No Did you review nursing and triage notes (agree or disagree)? Why? @ -I reviewed and agree with nursing and triage notes Were old charts reviewed (outside hosp., previous admission, EMS record, old EKG, old radiological studies, urgent care reports/EKG's, correction records)? Report findings @ -No old charts were reviewed Differential Diagnosis (chest pain, altered mental status, abdominal pain women, abdominal pain men, vaginal bleeding, weakness, fever, dyspnea, syncope, headache, dizziness, GI bleed, back pain, seizure, CVA, palpatations, mental health)? @ -Not applicable EKG interpreted by me (3pts min.). @ -As above X-rays interpreted by me (1pt min.). @ -Chest x-ray with no pneumothorax no pleural effusions no focal consolidations CT interpreted by me (1pt min.). @ -None done U/S interpreted by me (1pt. min.). @ -None done What testing was considered but not performed or refused? (CT, X-rays, U/S, labs)? Why? @ -Labs were considered but not done due to duration of symptoms What meds were considered but not given or refused? Why? @ -None Did you discuss the management of the patient with other professionals (professionals i.e. , PA, WEED COOKING OPERATOR, lab, RT, psych nurse, social problems specialist, stock tracer, teacher, payroll officer, case finishing machine adjuster)? Give summary @ -No Was smoking cessation discussed for >3mins.? @ -No Was critical care preformed (if so, how long)? @ -No Were there social determinants of health that impacted care today? How? (Homelessness, low income, unemployed, alcoholism, drug addiction, transportation, low edu. Level, literacy, decrease access to med. care, [facility], rehab)? @ -No Was there de-escalation of care discussed even if they declined (Discuss DNR or withdrawal of care, Hospice)? DNR status @ -No What co-morbidities impacted this encounter? (DM, HTN, Smoking, COPD, CAD, Cancer, CVA, ARF, Chemo, Hep., AIDS, mental health diagnosis, sleep apnea, morbid obesity)? @ -None Was patient admitted / discharged? Hospital course, mention meds given and route, prescriptions, significant lab abnormalities, going to OR and other pe rtinent info. @ -Discharged Patient was seen and evaluated, history is obtained from the patient. Patient with recurrent cough today has been going on for 6 weeks. X-ray was obtained and was negative for acute process. Patient be discharged with 5-day course of low-dose steroids and a plan to follow-up with pulmonology. Undiagnosed new problem with uncertain prognosis? @ -No Drug Therapy requiring intensive monitoring for toxicity (Heparin, Nitro, Insulin, Cardizem)? @ -No Were any procedures done? @ -No Diagnosis/symptom? @ Cough Acute, or Chronic, or Acute on Chronic? @ -Default Uncomplicated (without systemic symptoms) or Complicated (systemic symptoms)? @ -Default Side effects of treatment? @ -No Exacerbation, Progression, or Severe Exacerbation? @ -No Poses a threat to life or bodily function? How? (Chest pain, [place], [place], pneumonia, PE, COPD, DKA, ARF, appy, cholecystitis, CVA, Diverticulitis, Homicidal, Suicidal, threat to staff... and all critical care pts) @ -No Disposition Clinical Impression: Bronchitis Disposition: HOME SELF-CARE Condition: Stable Instructions (If sedation given, give patient instructions): Upper Respiratory Infection (ED) Prescriptions: predniSONE [Deltasone] 40 mg PO DAILY 5 Days #10 tab Is patient prescribed a controlled substance at d/c from ED?: No Referrals: Mingo Allison DO [Primary Care Provider] - 1-2 days
--- NOTE | 2024-08-03 06:29 | XR ---
EXAMINATION TYPE: XR chest 2V DATE OF EXAM: 08/03/2024 CLINICAL HISTORY: Cough TECHNIQUE: Frontal and lateral views of the chest are obtained. COMPARISON: Prior chest x-ray October 13, 2023 FINDINGS: There is no focal air space opacity, pleural effusion, or pneumothorax seen. Slightly mike vated left hemidiaphragm redemonstrated. The cardiac silhouette size is stable and within normal limi ts. Surgical changes of the cervical spine are partially imaged. IMPRESSION: No acute pulmonary infiltrate. [facility], , 08/03/2024 6:27 AM
[2024-08-03 06:48] VITALS: BP 117/70; PULSE 76; RESP 21
[2024-08-03] MEDS: predniSONE 20 MG TAB PO STA (06:58)
== END 2024-08-03 07:01 | disposition home or self-care (01) ==
LOC: EC 05:32
DX: J40 Bronchitis, not specified as acute or chronic (principal); Z87.891 Personal history of nicotine dependence
CPT/HCPCS: 71046; 99283; J7512

== ENCOUNTER → 2024-08-06 | Outpatient (CLI) | payer BC ==
[2024-08-06 10:37] LABS: Basophils # (A) 0.1 k/uL (0-0.2); Basophils % (A) 0 %; Eosinophils % (A) 0 %; HGB 13.8 gm/dL (11.4-16.0); Lymphocytes # (A) 1.9 k/uL (1.0-4.8); Lymphocytes % (A) 14 %; MCH 28.3 pg (25.0-35.0); MCHC 32.8 g/dL (31.0-37.0); MCV 86.2 fL (80.0-100.0); Mean Platelet Volume 8.8; Monocytes # (A) 0.3 k/uL (0-1.0); Monocytes % (A) 2 %; Neutrophils # (A) 10.6 k/uL (1.3-7.7); Neutrophils % (A) 82 %; Platelet Count 259 k/uL (150-450); RBC 4.87 m/uL (3.80-5.40); RDW 13.7 % (11.5-15.5); WBC 12.9 k/uL (3.8-10.6)
[2024-08-06 10:41] LABS: Total Eosinophil Count 26 #EOS/uL (150-300)
[2024-08-07 14:22] LABS: Alternaria alternata IgE <0.10 kU/L; Aspergillus fumagatus IgE <0.10 kU/L; Birch IgE <0.10 kU/L; Cat Epith & Dander IgE <0.10 kU/L; Cladosporian herbarum IgE <0.10 kU/L; Cockroach IgE <0.10 kU/L; Dermato. farinae IgE <0.10 kU/L; Dog Dander IgE <0.10 kU/L; Elm IgE <0.10 kU/L; Maple (Box Elder) IgE <0.10 kU/L; Oak IgE <0.10 kU/L; Ragweed,Common IgE <0.10 kU/L; Red Top (Bentgrass) IgE <0.10 kU/L
== END | disposition home or self-care (01) ==
LOC: LABWHC1 09:12
PROVIDERS: ATTEND Internal Medicine
DX: R05.3 Chronic cough (principal)
CPT/HCPCS: 36415; 82785; 85008; 85025; 86003

== ENCOUNTER → 2024-08-29 | Outpatient (CLI) | payer BC ==
--- NOTE | 2024-08-29 23:15 | CT ---
EXAMINATION TYPE: CT chest w con CT DLP: 691 mGycm, Automated exposure control for dose reduction was used. DATE OF EXAM: 08/29/2024 6:46 PM COMPARISON: CTA chest 10/13/2023 . CLINICAL INDICATION:Female, 44 years old with history of R91.8 NONSPECIFIC ABNORMAL FINDING OF LUNG F IELD; PHH, Abnormal finding in lung field. Cough x4 years. TECHNIQUE: Multiple axial images were obtained through the chest. Sagittal and coronal reformats were created for review. Contrast used:100cc mL of Isovue 300 with IV Contrast (None if empty) Oral contrast used: (None if empty) FINDINGS: LUNGS/ PLEURA: The lung parenchyma appears unremarkable. AIRWAY: Patent and unremarkable. HEART: Size within normal limits. MEDIASTINUM: No gross evidence of adenopathy. VASCULATURE: No aortic aneurysm. MUSCULOSKELETAL: No acute osseous abnormalities. Partially visualized cervical spine surgical hardwar e. SOFT TISSUES/LYMPH NODES: Unremarkable. LOWER NECK: No significant findings. UPPER ABDOMEN: No significant findings. Cholecystectomy clips. IMPRESSION: No significant abnormality. [facility], , 08/29/2024 11:13 PM
== END | disposition home or self-care (01) ==
LOC: RADCTMAIN 15:37
PROVIDERS: ATTEND Internal Medicine
DX: R91.8 Other nonspecific abnormal finding of lung field (principal)
CPT/HCPCS: 71260; Q9967

== ENCOUNTER 2024-09-05 10:55 | Day surgery (SDC) | payer BC ==
[~2024-09-05 10:55] MED LIST changes: +LIDOCAINE 1% (10MG/ML) FOR IV START INTRADERMA PRN
[2024-09-05] MEDS: IV FLUID CONTINUATION 1,000 ML IV ONE (11:54)
[2024-09-05 12:07] LABS: Glucose,Whole Blood 86 mg/dL (70-110)
[2024-09-05] MEDS: ONDANSETRON 4 MG/2 ML VIAL IVP STA (12:12)
[2024-09-05] MEDS ORDERED: LIDOCAINE 1% INJ 10MG/ML (20 ML MDV) ONE (12:22)
[2024-09-05] MEDS ORDERED: PROPOFOL 10 MG/ML 20 ML VIAL IV ONE (12:22)
[2024-09-05] MEDS: LIDOCAINE 2% INJ 20 MG/ML INTRATRACH ONE ×2 (12:25→12:37)
[2024-09-05 13:05] VITALS: BP 111/74; PULSE 72
--- NOTE | 2024-09-05 19:49 | OP ---
OPERATIVE REPORT DATE OF SERVICE : PROCEDURES PERFORMED: Bronchoscopy and random bronchoalveolar lavage and random bronchial wash. PREOPERATIVE DIAGNOSIS: Chronic cough. POSTOPERATIVE DIAGNOSIS: Chronic cough, exact etiology is not clear. ANESTHESIA USED: IV conscious sedation. DESCRIPTION OF PROCEDURE: The patient was brought into the bronchoscopy suite, she was prepared according to the bronchoscopy protocol. Placed in a supine position, O2 was applied via Ventimask. Then, after adequate IV conscious sedation, the bronchoscope was advanced down through the bite block to the area of the vocal cords. No evidence of pathology was noted over the vocal cords. Then, lidocaine was applied over the vocal cords, and the bronchoscope was advanced further down. Thorough examination was done of the trachea, leonarda, right upper lobe, right middle lobe, right lower lobe, left upper lobe, lingula, and left lower lobe. There was no evidence of any significant endobronchial pathology, the mucosa was noted to be slightly bronchitic, no purulent secretions noted, bronchoalveolar lavage was done of different areas of both lungs including right upper lobe, right middle lobe, right lower lobe, left upper lobe, lingula, and left lower lobe. Fluid was sent for different diagnostic studies, procedure was well tolerated, no complications. The patient will be discharged home and she will follow up on outpatient basis. MMODL / IJN: [id number] /
[2024-09-05 22:57] LABS: Appearance,BF Clear (Clear); RBC, Body Fluid 34 /UL (0-2000)
[2024-09-06 09:31] LABS: Nucleated Cells, Body Fluid 31 /UL
== END 2024-09-05 13:21 | disposition home or self-care (01) ==
LOC: ORWHC2ENDO 10:55
PROVIDERS: ATTEND Internal Medicine
DX: R05.3 Chronic cough (principal); K21.9 Gastro-esophageal reflux disease without esophagitis; J30.9 Allergic rhinitis, unspecified; E78.5 Hyperlipidemia, unspecified; F31.9 Bipolar disorder, unspecified; F41.9 Anxiety disorder, unspecified; G43.909 Migraine, unspecified, not intractable, without status migrainosus; Z86.16 Personal history of COVID-19; Z79.899 Other long term (current) drug therapy; Z90.49 Acquired absence of other specified parts of digestive tract; Z90.710 Acquired absence of both cervix and uterus; Z98.890 Other specified postprocedural states; Z87.891 Personal history of nicotine dependence; Z83.6 Family history of other diseases of the respiratory system
CPT/HCPCS: 81025; 87798 ×3; 87496; 87498; 87529; 88108; 88305; 89050; 87502; 87634; 87070; 87205; 87116; 87102; 87206; 87635; 31624; J2405; J2003 ×2; J2704